=== PATIENT | male | born 1995 | race Caucasian/White ===

== ENCOUNTER 2020-05-18 08:12 | Outpatient (REF) | payer OTHER, SELFPAY ==
--- NOTE | 2020-05-18 08:18 | XR_ITS ---
EXAMINATION: XR CHEST CLINICAL INFORMATION: Precordial pain. COMPARISON: None TECHNIQUE: 2 views of the chest were obtained. FINDINGS: No significant abnormality is noted involving the heart, lungs, mediastinum, bony thorax or soft tissues. XR/XR chest 2V IMPRESSION: No acute cardiopulmonary process.
== END 2020-05-18 08:13 | disposition home or self-care (01) ==
LOC: HO.XRAY 08:12
PROVIDERS: Visit Provider Internal Medicine
DX: R07.2 Precordial pain (principal)
CPT/HCPCS: 71046

== ENCOUNTER → 2020-05-29 14:58 | Outpatient (BNVA) | payer OTHER, SELFPAY | PROVIDERS: PCP Internal Medicine; Referring Provider Internal Medicine; Visit Provider Internal Medicine | DX: R07.2 Precordial pain (principal) | CPT/HCPCS: 93005 ==

== ENCOUNTER → 2020-06-11 13:00 | Outpatient (REF) | payer OTHER, SELFPAY ==
--- NOTE | 2020-06-11 13:06 | CA_ITS ---
Transthoracic Echocardiogram Patient (Last, First, Middle): Huang Galvez, Gender: Male Date of : 1995 Age: 24 Procedure Date: 06/11/2020 Procedure Type: Transthoracic Echocardiogram Location: OP Height: 177.8 cm Weight: 74.84 kg BSA: 1.92 m2 Heart Rate: bpm BP: 114 / 78 mmHg Certified Control Systems Technician: NICOLE Manzanares MD: Tramaine Edwards MD Symptoms: CP Study Quality: Good ECG Rhythm: Sinus Conclusions: - The left ventricular systolic function is normal. The visually estimated ejection fraction is between 55-60%. - No obvious valvular pathology seen on this study. Findings Left Ventricle Normal left ventricular cavity size. There is normal left ventricular wall thickness. The left ventricular systolic function is normal. The visually estimated ejection fraction is between 55-60%. There is no evidence of regional wall motion abnormalities. Diastolic function is normal for age. Right Ventricle Normal right ventricular cavity size and systolic function. Atria The left atrium is normal in size. The right atrium is normal in size. Aortic Valve There is a normal trileaflet aortic valve. There is no aortic valve stenosis. There is no aortic valve regurgitation. Mitral Valve The mitral valve appears normal. There is no mitral valve regurgitation. There is no mitral valve stenosis. Pulmonic Valve The pulmonic valve was not well visualized. Tricuspid Valve Normal tricuspid valve structure. There is trace tricuspid valve regurgitation. The pulmonary artery systolic pressure is normal. Great Vessels The asc aorta is normal in size. Venous The inferior vena cava is normal in size and collapses greater than 50% with inspiration. Pericardium/Pleural There is no evidence of pericardial effusion. Prior Study Comparison No prior study available for comparison. Recommendations, Care & Conclusions No obvious valvular pathology seen on this study. Measurements 2D Linear Measurements RVIDd: 3.07 RVIDd Index: 1.60 IVSd: 0.72 0.6-0.9/0.6-1.0 cm LVIDd: 4.73 3.9-5.3/4.2-5.9 cm LVIDd Index: 2.46 2.4-3.2/2.2-3.1 cm/m2 LVIDs: 3.53 2.0-3.6 cm LVPWd: 0.87 0.7-1.1 cm Ao Root: 3.10 2.1-3.5 cm LA Diam: 3.20 2.7-3.8/3.0-4.0 cm LAIDs Index: 1.67 1.5-2.3 cm/m2 LV Mass: 152.85 67-162/88-224 g LV Mass Index: 79.61 43-95/49-115 g/m2 LVOT Diam: 2.30 3.0+(-)1.3 cm 2D Systolic Function EF 4C: 53.70 >55% EF 2C: 59.10 >55% EF BiP: 57.20 >55% Mitral Valve MV Pk E: 0.64 MV PK A: 0.41 MV Decel Time: 234.00 E/A: 1.60 E'Lateral: 16.80 E'Medial: 13.20 E/E' Med: 4.90 E/E' Lat: 3.80 Aortic Valve AoV Pk Basil: 1.18 AoV Mn Basil: 0.79 AoV VTI: 0.20 AoV Pk Grad: 6.00 Aov Mn Grad: 3.00 YOGI Cont.VTI: 4.15 LVOT LVOT Pk Basil: 1.17 LVOT Mn Basil: 0.71 LVOT VTI: 0.20 LVOT Pk Grad: 5.00 LVOT Mn Grad: 2.00 LVOT Diam: 2.30 LVOT Area: 4.15 Diastolic Function MV Pk E: 0.64 MV Pk A: 0.41 E/A: 1.60 E'Medial: 13.20 E/E' Med: 4.90 E' Laterial: 16.80 E/E' Lat: 3.80 Tricuspid Valve TR Pk Basil: 2.01 TR Pk Grad: 16.00 RA Press: 8.00 RVSP: 24.00 Great Vessels Aorta Ao Root-2D: 3.10 2.0-3.7 cm Ao Asc: 2.90 2.1-3.4 cm Ao Arch: 2.50 Updated in Other Vendor System with Status of Final Tramaine Edwards MD electronically signed on 06/11/2020 4:11:40 PM with status of Final
== END ==
LOC: HO.CARD 13:00
PROVIDERS: PCP Internal Medicine; Visit Provider Internal Medicine
DX: R07.2 Precordial pain (principal)
CPT/HCPCS: 93306

== ENCOUNTER → 2020-06-13 13:35 | Outpatient (BNVA) | payer OTHER, SELFPAY | PROVIDERS: PCP Internal Medicine; Visit Provider Internal Medicine | DX: Z76.89 Persons encountering health services in other specified circumstances (principal) ==

== ENCOUNTER → 2021-01-03 14:06 | Outpatient (BNVA) | payer OTHER, SELFPAY | PROVIDERS: PCP Internal Medicine; Referring Provider Internal Medicine; Visit Provider Surgery ==

== ENCOUNTER 2021-01-23 06:16 | Day surgery (SDC) | payer OTHER, SELFPAY ==
[2021-01-16 09:39] VITALS: BMI 26.4
--- NOTE | 2021-01-22 08:10 | HO.ANESPROP2 ---
Documented by User: Brenda Maza 01/22/21 08:11 HPI - Anesthesia Eval Consult details Narrative: 25yo M for Excision of Pilonidal Cyst, Excision of Sebaceous Cyst Left Chest Wall PMFSH Active Problems Active Problems: All Active Problems (Updated 01/16/21 @ 09:41 by Caridad Perez) Precordial chest pain (Acute) Sebaceous cyst (Acute) Pilonidal cyst (Acute) Past Medical History Medical History Asthma COVID-19 vaccine administered GERD (gastroesophageal reflux disease) Occasional cigarette smoker Family History Family History Father Heart attack Mother No problems noted. Surgical History Surgical History Hx of wisdom tooth extraction Social History Social History Are you a primary health and social care teacher to a significant other at home: No Do you presently have visiting nurse or other home services: No Alcohol intake: current Alcohol intake frequency: a few times a week Patient Tobacco Use Status: Current someday Tobacco user Tobacco use type: Cigarette Cigarettes Per Day: 0 Use of substances other than those prescribed or required for medical reasons: No Substance Use Type: Marijuana Have you been hit, kicked, punched, or otherwise hurt by someone within the past year? If so, by whom?: No Are you DNR?: No Advance Directives: No Advance Directives Information Provided: Yes Advance Directives on File: No Recently lost weight without trying: No Eating poorly because of decreased appetite: No Nutrition Risks: No Nutritional Risk Poor oral hygiene: Yes (has permanent lower inner retainer) Meds Allergies Allergy/AdvReac Type Severity Reaction Status Date / Time Penicillins Allergy Severe anaphylaxis Verified 01/23/21 06:22 in mother - Pt did not react Home Medications Medication Instructions Recorded Confirmed Last Taken Type albuterol sulfate 90 mcg/actuation 1 inh INHALATION Q4H PRN 05/29/20 01/16/21 Unknown History aerosol inhaler omeprazole 20 mg capsule,delayed 20 mg PO DAILY PRN 06/13/20 01/16/21 Unknown History release Exam Exam Date and Time: January 22, 2021 0810 Height,Weight and Vital Signs: Height 5 ft 10 in Weight 83.5 kg Narrative Narrative: EKG 05/2020 sinus tachycardia / 101/Min, no significant ST-T changes and otherwise unremarkable; normal MD /QTc. ECHO 05/2020 Conclusions: - The left ventricular systolic function is normal. The visually estimated ejection fraction is between 55-60%. - No obvious valvular pathology seen on this study. Assessment and Plan Assessment Anesthesia Assessment: Chart Reviewed Documented by User: Maureen Kilgore 01/23/21 07:42 [facility] Past Medical History Medical History Asthma COVID-19 vaccine administered GERD (gastroesophageal reflux disease) Occasional cigarette smoker Family History Family History Father Heart attack Mother No problems noted. Surgical History Surgical History Hx of wisdom tooth extraction Social History Social History Are you a primary health and social care teacher to a significant other at home: No Do you presently have visiting nurse or other home services: No Alcohol intake: current Alcohol intake frequency: a few times a week Patient Tobacco Use Status: Current someday Tobacco user Tobacco use type: Cigarette Cigarettes Per Day: 0 Use of substances other than those prescribed or required for medical reasons: No Substance Use Type: Marijuana Have you been hit, kicked, punched, or otherwise hurt by someone within the past year? If so, by whom?: No Are you DNR?: No Advance Directives: No Advance Directives Information Provided: Yes Advance Directives on File: No Recently lost weight without trying: No Eating poorly because of decreased appetite: No Nutrition Risks: No Nutritional Risk Poor oral hygiene: Yes (has permanent lower inner retainer) Meds Allergies Allergy/AdvReac Type Severity Reaction Status Date / Time Penicillins Allergy Severe anaphylaxis Verified 01/23/21 06:22 in mother - Pt did not react Home Medications Medication Instructions Recorded Confirmed Last Taken Type albuterol sulfate 90 mcg/actuation 1 inh INHALATION Q4H PRN 05/29/20 01/16/21 Unknown History aerosol inhaler omeprazole 20 mg capsule,delayed 20 mg PO DAILY PRN 06/13/20 01/16/21 Unknown History release Exam Airway Mallampati Class: I TM Dist: >3cm Neck ROM: Full Assessment and Plan Assessment Anesthesia Assessment: Anesthesia Plan Discussed and Chart Reviewed Final Anesthetic Review NPO: Yes ASA Class: I Final Preanesthetic Review: No Changes in Pt Med Stat, Meds/Allgs Chart Reviewed, Consent Obtained/Reviewed and Anes Risks/Benef Reviewed Patient Risk: Low Procedure Risk: Low Assessment/Block/Sedation in SS: Assess/Block/Sedation-SS Anesthetic Plan Anesthetic Plan: GA Disposition: Standard PACU
[2021-01-23 06:27] VITALS: BP 138/82; PULSE 69; RESP 16; TEMP 36.1; O2SAT 99; BMI 25.1
[2021-01-23] MEDS: Lactated Ringers 1,000 ML 100 ML IVCONT (06:37)
[2021-01-23] MEDS: vancomycin HCL 1,000 MG in 0.9 % Sodium Chloride 250 ML 270 MG IV (06:51)
--- NOTE | 2021-01-23 07:24 | MHC.SHP ---
Pre-Procedural Eval Section A Date of Service: 01/23/21 The patient is an INPATIENT: No Changes since office visit: Yes Patient answered all questions; No Cold of Flu in the past 2 weeks, No New Medical Problems and No Changes in Medication The History & Physical has been completed within 30 days and I have reviewed it.: Yes Section B Chief Complaint: Sebaceous Cyst, Pilonidal Cyst Allergies: Allergies Allergy/AdvReac Type Severity Reaction Status Date / Time Penicillins Allergy Severe anaphylaxis Verified 01/23/21 06:22 in mother - Pt did not react Plan Diagnosis/Plan: Unchanged I have reviewed the history and physical and performed a pertinent physical examination on my patient. No changes have occurred unless specified.
[2021-01-23 08:29] VITALS: BP 118/68; PULSE 67; RESP 16; TEMP 36.4; O2SAT 98
--- NOTE | 2021-01-23 08:29 | P.OP_ITS ---
Operative Note Operative Note Date of Service: 01/23/21 Narrative: Preoperative diagnosis:Pilonidal cyst, chest wall sebaceous cyst Postoperative diagnosis:same Procedure:Pilonidal cystectomy, excision of chest wall sebaceous cyst Surgeon: Gorge Paul MD Crew Mess Attendant: no physician Anesthesia:General LMA Indications for procedure: 25-year-old male patient presenting with a constantly draining pilonidal cyst. Patient requested excision. Patient also has recurring infected sebaceous cyst of the anterior chest wall to the left of midline. Operative findings: Pilonidal cyst located in the upper right intergluteal fold. No abscess appreciated. Sebaceous cyst with surrounding inflammatory changes in the anterior left chest Specimen: 1. pilonidal cyst; 2. sebaceous cyst left chest wall Estimated blood loss: 10 mL Complications: none Procedure details: patient was brought to the OR and placed in a supine position. He was then placed in a prone position. After administering general anesthesia with LMA the intergluteal cleft was prepped with Betadine and draped in a sterile fashion. A surgical time-out was called the consent confirmed. Patient received preoperative antibiotics and Venodyne boots were in place. Local anesthesia consisting of 0.5% Sensorcaine was infiltrated surrounding the pilonidal cyst. An elliptical incision was then created with a scalpel and carried out through subcutaneous tissue and around the cyst wall. The cyst was completely excised and sent to pathology for further examination. After achieving adequate hemostasis the subcutaneous tissue was reapproximated using interrupted 3-0 Polysorb sutures. Dermis was also reapproximated using interrupted 3-0 Polysorb sutures. Skin was then closed using interrupted 3-0 nylon sutures. Sterile dressings consisting of Xeroform and ABD pads were then applied. The patient was then placed in a supine position. Skin wound over the left chest cyst wall was prepped Betadine and draped in a sterile fashion. Local was infiltrated surrounding the lesion. An elliptical incision using 15 blade was then used in a transverse fashion. This carried out through subcutaneous tissue around the cyst wall. Dermis was reapproximated using interrupted 3-0 Polysorb sutures. Skin was closed using interrupted 4-0 nylon sutures. Sterile dressings consisting of 2 x 2 gauze and Tegaderm were then applied. The patient tolerated the procedure well. Sponge, instrument, needle counts reported as correct. The patient was transferred to PACU in stable condition.
[2021-01-23 08:34] VITALS: BP 106/71; PULSE 65; RESP 16; O2SAT 99
[2021-01-23 08:38] VITALS: BP 117/69; PULSE 65; RESP 16; O2SAT 99
[2021-01-23 08:45] VITALS: PULSE 72; RESP 16
[2021-01-23] MEDS: oxyCODONE HCl Immed Release 5 MG TABLET PO (08:57)
[2021-01-23] MEDS: Acetaminophen 325 MG TABLET 650 MG PO (08:57)
[2021-01-23 09:00] VITALS: BP 139/91; PULSE 75; RESP 18; TEMP 36.4; O2SAT 100
== END 2021-01-23 09:50 | disposition home or self-care (01) ==
PROVIDERS: PCP Internal Medicine; Visit Provider Surgery
PROC: (CPT 11771; principal; 2021-01-23 07:30)
DX: L05.91 Pilonidal cyst without abscess (principal); L72.3 Sebaceous cyst; J45.909 Unspecified asthma, uncomplicated; K21.9 Gastro-esophageal reflux disease without esophagitis; Z79.899 Other long term (current) drug therapy; Z88.0 Allergy status to penicillin; F17.210 Nicotine dependence, cigarettes, uncomplicated; F12.90 Cannabis use, unspecified, uncomplicated
CPT/HCPCS: 11771; 11406; 88304; J1100; J2250; J2405; J3010; J3370

== ENCOUNTER → 2021-02-05 11:03 | Outpatient (BNVA) | payer OTHER, SELFPAY | PROVIDERS: PCP Internal Medicine; Referring Provider Internal Medicine; Visit Provider Surgery ==

== ENCOUNTER → 2021-02-22 09:51 | Outpatient (BNVA) | payer OTHER, SELFPAY | PROVIDERS: PCP Internal Medicine; Referring Provider Internal Medicine; Visit Provider Surgery ==

== ENCOUNTER 2021-04-01 11:36 | Outpatient (REF) | payer OTHER, SELFPAY ==
[2021-04-01 11:39] LABS: MANUAL DIFF FLAG NO
[2021-04-01 12:09] LABS: Appearance Urine CLEAR; Color Urine YELLOW; Glucose Urine UA NEG (NEG); Leukocyte Esterase Urine NEG (NEG); Nitrite Urine NEG (NEG); Specific Gravity - Urine 1.025 (1.005-1.025); Urine Blood NEG (NEG); Urine Ketones NEG (NEG); Urine Protein NEG (NEG-TRACE)
[2021-04-01 12:11] LABS: Basophils Absolute Auto 0.1 X10*3/uL (0.0-0.2); Basophils Percent Auto 0.5 % (0-2); Eosinophils Absolute Auto 0.4 X10*3/uL (0.0-0.4); Eosinophils Percent Auto 4.4 % (0-4); Hematocrit 45.9 % (42-52); Hemoglobin 15.6 g/dl (14.0-18.0); Imm Gran Abs Auto 0.03 X10*3/uL (0.00-0.03); Imm Gran Pct Auto 0.3 % (0.0-0.4); Lymphocytes Percent Auto 31.3 % (20-40); Mean Corpuscular Hemoglobin 31.5 pg (27.0-33.0); Mean Corpuscular Volume 92.7 fL (80-98); Monocytes Absolute Auto 0.7 X10*3/uL (0.1-1.2); Monocytes Percent Auto 7.2 % (2-11); Neutrophils Absolute Auto 5.4 X10*3/uL (2.0-8.3); Neutrophils Percent Auto 56.3 % (45-73); Platelet Count 308 X10*3/uL (160-400); Red Blood Count 4.95 X10*6/uL (4.60-5.80); Red Cell Distribution Width 12.3 % (11.0-16.0); White Blood Count 9.6 X10*3/uL (4.8-10.8)
[2021-04-01 12:45] LABS: Alanine Aminotransferase 37 U/L (0-40); Albumin Level 4.6 g/dL (3.5-5.0); Alkaline Phosphatase 73 U/L (39-117); Anion Gap 13 (12-20); Aspartate Amino Transferase 17 U/L (5-37); Bilirubin Total 0.5 mg/dL (0.0-1.0); Blood Urea Nitrogen 10 mg/dL (9-16); Calcium 9.8 mg/dL (8.4-10.2); Carbon Dioxide 25 mmol/L (22-29); Chloride 105 mmol/L (96-108); Cholesterol 159 mg/dL; Estimated Glomerular Filt Rate > 60; Glucose Fasting 88 mg/dL (60-99); HDL Cholesterol 49 mg/dL; LDL Cholesterol Calculated 92 mg/dl; Potassium 4.1 mmol/L (3.3-5.1); Sodium 139 mmol/L (135-145); Total Protein 7.2 g/dL (6.5-8.0); Triglycerides 94 mg/dL
== END 2021-04-01 11:37 | disposition home or self-care (01) ==
LOC: HO.LNP 11:36
PROVIDERS: Visit Provider Internal Medicine
DX: Z00.00 Encounter for general adult medical examination without abnormal findings (principal); D72.820 Lymphocytosis (symptomatic)
CPT/HCPCS: 80053; 80061; 81003; 85025

== ENCOUNTER → 2021-08-20 15:29 | Outpatient (BNVA) | payer OTHER, SELFPAY | PROVIDERS: PCP Internal Medicine; Referring Provider Internal Medicine; Visit Provider Surgery ==

== ENCOUNTER → 2021-09-03 15:02 | Outpatient (BNVA) | payer OTHER, SELFPAY | PROVIDERS: PCP Internal Medicine; Referring Provider Internal Medicine; Visit Provider Surgery ==

== ENCOUNTER → 2021-09-17 15:01 | Outpatient (BNVA) | payer OTHER, SELFPAY | PROVIDERS: PCP Internal Medicine; Visit Provider Surgery ==

== ENCOUNTER → 2021-10-15 15:04 | Outpatient (BNVA) | payer OTHER, SELFPAY | PROVIDERS: PCP Internal Medicine; Referring Provider Internal Medicine; Visit Provider Surgery | DX: L05.91 Pilonidal cyst without abscess (principal) ==

== ENCOUNTER → 2022-03-07 13:13 | Outpatient (BNVA) | payer OTHER, SELFPAY | PROVIDERS: PCP Internal Medicine; Visit Provider Surgery | DX: K60.2 Anal fissure, unspecified (principal); K62.5 Hemorrhage of anus and rectum | CPT/HCPCS: 46600 ==

== ENCOUNTER 2022-04-15 11:39 | Outpatient (REF) | payer OTHER, SELFPAY ==
[2022-04-15 11:41] LABS: MANUAL DIFF FLAG NO
[2022-04-15 12:10] LABS: Basophils Percent Auto 0.6 % (0-2); Eosinophils Absolute Auto 0.5 X10*3/uL (0.0-0.4); Eosinophils Percent Auto 7.2 % (0-4); Hematocrit 46.3 % (42.0-52.0); Hemoglobin 14.9 g/dl (14.0-18.0); Imm Gran Abs Auto 0.01 X10*3/uL (0.00-0.03); Imm Gran Pct Auto 0.1 % (0.0-0.4); Lymphocytes Absolute Auto 2.5 X10*3/uL (1.2-4.9); Lymphocytes Percent Auto 35.3 % (20-40); Mean Corpuscular HGB Conc 32.2 g/dl (31.0-36.0); Mean Corpuscular Hemoglobin 31.1 pg (27.0-33.0); Mean Corpuscular Volume 96.7 fL (80.0-98.0); Mean Platelet Volume 10.1 fL (9.4-12.4); Monocytes Absolute Auto 0.7 X10*3/uL (0.1-1.2); Monocytes Percent Auto 9.3 % (2-11); Neutrophils Absolute Auto 3.4 x10*3/uL (2.0-8.3); Neutrophils Percent Auto 47.5 % (45-73); Platelet Count 286 X10*3/uL (160-400); Red Blood Count 4.79 X10*6/uL (4.60-5.80); Red Cell Distribution Width 13.1 % (11.0-16.0); White Blood Count 7.1 X10*3/uL (4.8-10.8)
[2022-04-15 12:15] LABS: Appearance Urine Clear; Color Urine Yellow; Glucose Urine UA Negative (Negative); Leukocyte Esterase Urine Negative (Negative); Nitrite Urine Negative (Negative); Specific Gravity - Urine >= 1.030 (1.005-1.025); Urine Blood Negative (Negative); Urine Ketones Trace mg/dL (Negative); Urine Protein Negative (Neg-Trace)
[2022-04-15 12:32] LABS: Alanine Aminotransferase 36 U/L (0-40); Albumin Level 4.1 g/dL (3.5-5.0); Alkaline Phosphatase 89 U/L (39-117); Anion Gap 16 (12-20); Aspartate Amino Transferase 14 U/L (5-37); Bilirubin Total < 0.2 mg/dL (0.0-1.0); Blood Urea Nitrogen 20 mg/dL (9-16); Calcium 9.2 mg/dL (8.4-10.2); Carbon Dioxide 27 mmol/L (22-29); Chloride 107 mmol/L (96-108); Cholesterol 148 mg/dL; Estimated Glomerular Filt Rate > 60; Glucose Fasting 78 mg/dL (60-99); HDL Cholesterol 36 mg/dL; LDL Cholesterol Calculated 57 mg/dl; Potassium 4.4 mmol/L (3.3-5.1); Sodium 146 mmol/L (135-145); Triglycerides 277 mg/dL
== END 2022-04-15 11:40 | disposition home or self-care (01) ==
LOC: HO.LNP 11:39
PROVIDERS: Visit Provider Internal Medicine
DX: Z00.00 Encounter for general adult medical examination without abnormal findings (principal); D72.820 Lymphocytosis (symptomatic)
CPT/HCPCS: 80053; 80061; 81003; 85025

== ENCOUNTER → 2022-05-14 09:28 | Outpatient (REF) | payer OTHER, SELFPAY ==
--- NOTE | 2022-05-14 09:33 | CA_ITS ---
Transthoracic Echocardiogram Patient (Last, First, Middle): Huang Galvez, Gender: Male Date of : 1995 Age: 26 Procedure Date: 05/14/2022 Procedure Type: Transthoracic Echocardiogram Location: OP Height: 177.8 cm Weight: 79.38 kg BSA: 1.97 m2 Heart Rate: bpm BP: 124 / 70 mmHg Cosmetic Surgeon: MAGDA Referring MD: Naveed Mueller MD Lemon Picker: Suleman Robison MD Symptoms: HEART MURMUR Study Quality: Adequate ECG Rhythm: Sinus Conclusions: - Normal study Findings Left Ventricle Normal left ventricular size, thickness, and systolic function. The visually estimated ejection fraction is between 60-65%. Diastolic function is normal for age. Right Ventricle Normal right ventricular cavity size and systolic function. Atria Both atria are normal in size. There is no evidence of interatrial shunt. Aortic Valve Normal aortic valve structure and function. There is no aortic valve stenosis. There is no aortic valve regurgitation. Mitral Valve Normal mitral valve structure and function. There is trace mitral valve regurgitation. There is no mitral valve stenosis. Pulmonic Valve The pulmonic valve is likely normal. There is no pulmonic valve regurgitation. Tricuspid Valve Normal tricuspid valve structure. There is trace tricuspid valve regurgitation. The right ventricular systolic pressure is normal. The right ventricular systolic pressure is 19 mmHg. Normal right atrial pressure. There is no evidence of pulmonary hypertension. Great Vessels All visible segments of the aorta are normal in size. The pulmonary artery was not well visualized. Venous The inferior vena cava is normal in size and collapses greater than 50% with inspiration. Pericardium/Pleural There is no evidence of pericardial effusion. Measurements 2D Linear Measurements IVSd: 1.05 0.6-0.9/0.6-1.0 cm LVIDd: 4.42 3.9-5.3/4.2-5.9 cm LVIDd Index: 2.24 2.4-3.2/2.2-3.1 cm/m2 LVIDs: 2.82 2.0-3.6 cm LVPWd: 1.05 0.7-1.1 cm Ao Root: 3.40 2.1-3.5 cm LA Diam: 2.90 2.7-3.8/3.0-4.0 cm LAIDs Index: 1.47 1.5-2.3 cm/m2 LV Mass: 198.45 67-162/88-224 g LV Mass Index: 100.74 43-95/49-115 g/m2 LVOT Diam: 2.40 3.0+(-)1.3 cm Mitral Valve MV Pk E: 0.65 MV PK A: 0.54 MV Decel Time: 213.00 E/A: 1.20 E'Lateral: 14.30 E'Medial: 12.60 E/E' Med: 5.20 E/E' Lat: 4.60 PHT: 62.00 MVA PHT: 3.55 Decel [place]: 3.06 Aortic Valve AoV Pk Basil: 1.06 AoV Mn Basil: 0.68 AoV VTI: 0.25 AoV Pk Grad: 4.00 Aov Mn Grad: 2.00 YOGI Cont.VTI: 3.04 LVOT LVOT Pk Basil: 0.82 LVOT Mn Basil: 0.53 LVOT VTI: 0.17 LVOT Pk Grad: 3.00 LVOT Mn Grad: 1.00 LVOT Diam: 2.40 LVOT Area: 4.52 Diastolic Function MV Pk E: 0.65 MV Pk A: 0.54 E/A: 1.20 E'Medial: 12.60 E/E' Med: 5.20 E' Laterial: 14.30 E/E' Lat: 4.60 Right Ventricle TAPSE (mm): 23.00 TVS' Basil: 10.00 Tricuspid Valve TR Pk Basil: 2.00 TR Pk Grad: 16.00 RA Press: 3.00 RVSP: 19.00 Great Vessels Aorta Ao Root-2D: 3.40 2.0-3.7 cm Ao Asc: 2.70 2.1-3.4 cm Pulmonary Valve PV Pk Basil: 0.84 Peak PV Grad: 3.00 Updated in Other Vendor System with Status of Final Suleman Robison MD electronically signed on 05/15/2022 8:28:58 AM with status of Final
== END ==
LOC: HO.CARD 09:28
PROVIDERS: PCP Internal Medicine; Visit Provider Internal Medicine
DX: R01.1 Cardiac murmur, unspecified (principal)
CPT/HCPCS: 93306

== ENCOUNTER → 2022-10-29 14:08 | Outpatient (BNVA) | payer OTHER, SELFPAY | PROVIDERS: PCP Internal Medicine; Visit Provider Surgery | DX: Z13.89 Encounter for screening for other disorder (principal) ==

== ENCOUNTER 2022-11-12 08:20 | Day surgery (SDC) | payer OTHER, SELFPAY ==
[2022-11-10 12:00] VITALS: BMI 27.8
--- NOTE | 2022-11-11 08:56 | P.CONAN_ITS ---
HPI - Anesthesia Eval Consult details Narrative: 27yo M for Wide Excision Pilonidal Cyst Abscess s/p pilonidal excision 2020 with GA-LMA 5 PMFSH Active Problems Active Problems: All Active Problems (Updated 03/07/22 @ 13:40 by Gorge Paul MD) Precordial chest pain (Acute) Sebaceous cyst (Acute) Pilonidal cyst (Acute) Anal fissure (Acute) Rectal bleeding (Acute) Past Medical History Medical History Asthma COVID-19 vaccine administered GERD (gastroesophageal reflux disease) Occasional cigarette smoker Family History Family History Father Heart attack Mother No problems noted. Surgical History Surgical History Hx of wisdom tooth extraction Pilonidal cyst Social History Social History Are you a primary date night caregiver to a significant other at home: No Do you presently have visiting nurse or other home services: No Alcohol intake: current Alcohol intake frequency: a few times a week Patient Tobacco Use Status: Current someday Tobacco user Tobacco use type: Cigarette Cigarettes Per Day: 0 Substance Use Type: Marijuana Meds Allergies Allergy/AdvReac Type Severity Reaction Status Date / Time Penicillins Allergy Severe anaphylaxis Verified 11/12/22 08:56 in mother - Pt did not react Home Medications Medication Instructions Recorded Confirmed Last Taken Type albuterol sulfate 90 mcg/actuation 1 inh inhalation Q4H PRN Wheezing 05/29/20 11/10/22 Unknown History aerosol inhaler Exam Exam Date and Time: November 11, 2022 0856 Height,Weight and Vital Signs: Height 5 ft 10 in Weight 87.906 kg Narrative Narrative: ECHO 04/2022 Conclusions: - Normal study ? Assessment and Plan Assessment Anesthesia Assessment: Chart Reviewed
[2022-11-12] VITALS (11 sets, daily range): BP systolic 135–165; BP diastolic 86–118; PULSE 81–121; RESP 15–18; TEMP 36.2–36.6; O2SAT 95–98
[2022-11-12] MEDS: Lactated Ringers 1,000 ML 100 ML IVCONT (09:27)
--- NOTE | 2022-11-12 09:35 | P.CONAN_ITS ---
[facility] Active Problems Active Problems: All Active Problems (Updated 03/07/22 @ 13:40 by Gorge Paul MD) Precordial chest pain (Acute) Sebaceous cyst (Acute) Pilonidal cyst (Acute) Anal fissure (Acute) Rectal bleeding (Acute) Past Medical History Medical History Asthma COVID-19 vaccine administered GERD (gastroesophageal reflux disease) Occasional cigarette smoker Family History Family History Father Heart attack Mother No problems noted. Surgical History Surgical History Hx of wisdom tooth extraction Pilonidal cyst Social History Social History Are you a primary customer care consultant to a significant other at home: No Do you presently have visiting nurse or other home services: No Alcohol intake: current Alcohol intake frequency: a few times a week Patient Tobacco Use Status: Current someday Tobacco user Tobacco use type: Cigarette Cigarettes Per Day: 0 Use of substances other than those prescribed or required for medical reasons: Yes Substance Use Type: Marijuana Substance Use Frequency: Occasionally Are you DNR?: No Advance Directives: No Advance Directives Information Provided: Yes Meds Allergies Allergy/AdvReac Type Severity Reaction Status Date / Time Penicillins Allergy Severe anaphylaxis Verified 11/12/22 08:56 in mother - Pt did not react Active Medications: Current Medications Albuterol Sulfate (Albuterol Sulfate (0.083%) 2.5 Mg/3 Ml Vial.Neb) 2.5 mg INHALE ONCE PRN PRN Reason: Shortness of Breath/Wheezing Lactated Ringer's (Lr) 1,000 mls @ 100 mls/hr IVCONT .Q10H KENDELL Last Admin: 11/12/22 09:27 Dose: 100 mls/hr Home Medications Medication Instructions Recorded Confirmed Last Taken Type albuterol sulfate 90 mcg/actuation 1 inh inhalation Q4H PRN Wheezing 05/29/20 11/10/22 Unknown History aerosol inhaler Exam Exam Date and Time: November 12, 2022 0935 Height,Weight and Vital Signs: Height 5 ft 10 in Weight 87.906 kg Last Vital Signs Temp 97.2 F 11/12/22 09:28 Pulse 81 04/26/23 09:28 Resp 15 11/12/22 09:28 BP 135/86 11/12/22 09:28 Pulse Ox 98 11/12/22 09:28 O2 Del Method Room Air 11/12/22 09:28 Airway Mallampati Class: II TM Dist: >3cm Neck ROM: Full Heart: RRR Lungs: CTA Assessment and Plan Final Anesthetic Review ASA Class: II Final Preanesthetic Review: Meds/Allgs Chart Reviewed, Consent Obtained/Reviewed and Anes Risks/Benef Reviewed Patient Risk: Low Procedure Risk: Low Anesthetic Plan Anesthetic Plan: GA Disposition: Standard PACU
--- NOTE | 2022-11-12 10:49 | P.OP_ITS ---
Operative Note Operative Note Date of Service: 11/12/22 Narrative: Preoperative diagnosis: Recurrent pilonidal cyst abscess Postoperative diagnosis: same Procedure: pilonidal cystectomy Surgeon: Gorge Paul MD Steel Erector: Kristen Vazquez PA-C Anesthesia: general endotracheal Indications for procedure: 27-year-old male patient with a previous history of pilonidal cyst excision now presenting with persistent drainage and bleeding, presenting for wider excision Operative findings: large subcutaneous collection in the upper intergluteal fold measuring approximately 3 cm in diameter Specimen: pilonidal cyst abscess Estimated blood loss: 5 mL Complications: none Procedure details: patient was brought to the OR placed in a supine position. After administering general anesthesia and was placed in a prone position. The patient's intergluteal cleft was prepped with Betadine and draped in a sterile fashion. A surgical time-out was called the consent confirmed. Patient received preoperative antibiotics and Venodyne boots were in place. Local anesthesia was then infiltrated around the excision site. methylene blue was injected into the abscess cavity. Elliptical incision was then created around the palpable cyst collection. Incision measured approximately 4 by 3 cm. Incision was carried out through subcutaneous tissue. Electrocautery was then used to dissect around the blue-stained abscess cavity. The lesion was then excised off the posterior muscle fascia. Hemostasis was assured using electrocautery at all times. The specimen was passed off table and sent to pathology for further examination. Wounds were then irrigated with saline solution and suctioned dry. Deep subcutaneous tissue was then reapproximated using interrupted 3-0 Polysorb sutures. Dermis and superficial fatty tissue was then reapproximated using interrupted 3-0 Polysorb sutures. Skin was then closed using interrupted 2 0 nylon sutures in a mattress formation. Sterile dressings were then applied. The patient tolerated the procedure well. Sponge, instrument, and needle counts reported as correct. The patient was transferred to PACU in stable condition.
--- NOTE | 2022-11-12 11:55 | HO.POSTANES ---
Post Anesthesia Evaluation Post Anesthesia Evaluation Vital Signs: Vital Signs Temp Pulse Resp BP Pulse Ox O2 Del Method 11/12/22 09:28 97.2 F 81 15 135/86 98 Room Air Anesthesia: General Endotracheal-GETA Mental Status: Awake Pain Control: Satisfactory Nausea/Vomiting: None Hydration: Adequate Anesthesia-Related Issues: No Anes. Related Issues
[2022-11-12] MEDS: oxyCODONE HCl Immed Release 5 MG TABLET PO (12:32)
[2022-11-12] MEDS: fentaNYL citrate/PF 100 MCG/2 ML VIAL 25 MCG IVPUSH ×3 (12:33→12:58)
== END 2022-11-12 14:22 | disposition home or self-care (01) ==
PROVIDERS: PCP Internal Medicine; Visit Provider Surgery
PROC: (CPT 11771; principal; 2022-11-12 10:20)
DX: L05.91 Pilonidal cyst without abscess (principal); J45.909 Unspecified asthma, uncomplicated; K21.9 Gastro-esophageal reflux disease without esophagitis; Z79.899 Other long term (current) drug therapy; Z88.0 Allergy status to penicillin; F17.210 Nicotine dependence, cigarettes, uncomplicated
CPT/HCPCS: 11771; 88304; J0690; J1100; J1885; J2250; J2405; J3010; Q9968

== ENCOUNTER → 2022-11-25 11:30 | Outpatient (BNVA) | payer OTHER, SELFPAY | PROVIDERS: PCP Internal Medicine; Visit Provider Physician Assistant Surgical ==

== ENCOUNTER → 2022-12-11 13:51 | Outpatient (BNVA) | payer OTHER, SELFPAY | PROVIDERS: PCP Internal Medicine; Visit Provider Surgery ==

== ENCOUNTER 2023-05-26 07:16 | Outpatient (REF) | payer OTHER, SELFPAY ==
[2023-05-26 07:25] LABS: MANUAL DIFF FLAG NO
[2023-05-26 07:48] LABS: Basophils Absolute Auto 0.1 X10*3/uL (0.0-0.2); Basophils Percent Auto 0.4 % (0-2); Eosinophils Absolute Auto 0.7 X10*3/uL (0.0-0.4); Eosinophils Percent Auto 5.2 % (0-4); Hematocrit 46.5 % (42.0-52.0); Hemoglobin 15.5 g/dl (14.0-18.0); Imm Gran Abs Auto 0.04 X10*3/uL (0.00-0.03); Imm Gran Pct Auto 0.3 % (0.0-0.4); Lymphocytes Absolute Auto 2.5 X10*3/uL (1.2-4.9); Lymphocytes Percent Auto 20.1 % (20-40); Mean Corpuscular HGB Conc 33.3 g/dl (31.0-36.0); Mean Corpuscular Hemoglobin 31.1 pg (27.0-33.0); Mean Corpuscular Volume 93.2 fL (80.0-98.0); Mean Platelet Volume 9.5 fL (9.4-12.4); Monocytes Absolute Auto 0.9 X10*3/uL (0.1-1.2); Monocytes Percent Auto 7.5 % (2-11); Neutrophils Absolute Auto 8.3 x10*3/uL (2.0-8.3); Neutrophils Percent Auto 66.5 % (45-73); Platelet Count 325 X10*3/uL (160-400); Red Blood Count 4.99 X10*6/uL (4.60-5.80); Red Cell Distribution Width 12.5 % (11.0-16.0); White Blood Count 12.5 X10*3/uL (4.8-10.8)
[2023-05-26 08:04] LABS: Appearance Urine Clear; Color Urine Yellow; Glucose Urine UA Negative (Negative); Leukocyte Esterase Urine Negative (Negative); Nitrite Urine Negative (Negative); Urine Blood Negative (Negative); Urine Ketones Negative (Negative); Urine Protein Negative (Neg-Trace)
[2023-05-26 08:10] LABS: Bacteria Urine None Seen (None Seen); Hyaline Casts Urine 0-2 /LPF (0-2); RBC Urine 0-2 /HPF (0-2); Squamous Epithelial Cell Urine 0-2 /HPF (0-2); WBC Urine 0-5 /HPF (0-5)
[2023-05-26 08:17] LABS: Alanine Aminotransferase 42 U/L (0-40); Albumin Level 4.2 g/dL (3.5-5.0); Alkaline Phosphatase 97 U/L (39-117); Anion Gap 12 (12-20); Aspartate Amino Transferase 45 U/L (5-37); Bilirubin Total 0.2 mg/dL (0.0-1.0); Blood Urea Nitrogen 10 mg/dL (9-16); Calcium 9.2 mg/dL (8.4-10.2); Carbon Dioxide 30 mmol/L (22-29); Chloride 107 mmol/L (96-108); Cholesterol 170 mg/dL (<200); Estimated Glomerular Filt Rate > 60; Glucose Fasting 94 mg/dL (60-99); HDL Cholesterol 37 mg/dL (>40); LDL Cholesterol Calculated 84 mg/dL (<100); Potassium 4.1 mmol/L (3.3-5.1); Sodium 145 mmol/L (135-145); Total Protein 7.4 g/dL (6.5-8.0); Triglycerides 245 mg/dL (<150)
== END 2023-05-26 07:17 | disposition home or self-care (01) ==
LOC: HO.LAB 07:16
PROVIDERS: PCP Internal Medicine; Visit Provider Internal Medicine
DX: Z00.00 Encounter for general adult medical examination without abnormal findings (principal); D72.820 Lymphocytosis (symptomatic)
CPT/HCPCS: 36415; 80053; 80061; 81001; 85025

== ENCOUNTER 2023-06-01 15:32 | Outpatient (REF) | payer OTHER, SELFPAY ==
[2023-06-01 15:37] LABS: MANUAL DIFF FLAG NO
[2023-06-01 15:45] LABS: Basophils Percent Auto 0.6 % (0-2); Eosinophils Absolute Auto 0.6 X10*3/uL (0.0-0.4); Eosinophils Percent Auto 8.9 % (0-4); Hematocrit 46.7 % (42.0-52.0); Hemoglobin 15.6 g/dl (14.0-18.0); Imm Gran Abs Auto 0.01 X10*3/uL (0.00-0.03); Imm Gran Pct Auto 0.2 % (0.0-0.4); Lymphocytes Absolute Auto 2.8 X10*3/uL (1.2-4.9); Lymphocytes Percent Auto 43.9 % (20-40); Mean Corpuscular HGB Conc 33.4 g/dl (31.0-36.0); Mean Corpuscular Hemoglobin 30.9 pg (27.0-33.0); Mean Corpuscular Volume 92.5 fL (80.0-98.0); Mean Platelet Volume 9.6 fL (9.4-12.4); Monocytes Absolute Auto 0.5 X10*3/uL (0.1-1.2); Monocytes Percent Auto 8.3 % (2-11); Neutrophils Absolute Auto 2.4 x10*3/uL (2.0-8.3); Neutrophils Percent Auto 38.1 % (45-73); Platelet Count 335 X10*3/uL (160-400); Red Blood Count 5.05 X10*6/uL (4.60-5.80); Red Cell Distribution Width 12.3 % (11.0-16.0); White Blood Count 6.3 X10*3/uL (4.8-10.8)
[2023-06-01 16:24] LABS: Monotest Negative (Negative)
[2023-06-01 16:34] LABS: Alanine Aminotransferase 35 U/L (0-40); Albumin Level 4.3 g/dL (3.5-5.0); Alkaline Phosphatase 74 U/L (39-117); Aspartate Amino Transferase 18 U/L (5-37); Bilirubin Direct 0.1 mg/dL (0.0-0.5); Bilirubin Total 0.3 mg/dL (0.0-1.0); Total Protein 7.3 g/dL (6.5-8.0)
[2023-06-02 07:20] LABS: HBS Num1 2.41 mIU/mL (0-7.99); HBc Num1 0.05 S/CO (0.00-0.79); HBsAGNum1 0.27 S/CO (0.00-0.99); Hepatitis A Antibody IgM 0.19 Index (0-0.79); Hepatitis B Core Antibody Nonreactive (Nonreactive); Hepatitis B Surface Antigen Negative (Negative); ~HepC Num1 0.03 S/CO (0.00-0.79); ~Hepatitis A Antibody IgM Nonreactive (Nonreactive); ~Hepatitis B Surface Antibody NONREACTIVE (Nonreactive); ~Hepatitis C Antibody Nonreactive (Nonreactive)
== END 2023-06-01 15:33 | disposition home or self-care (01) ==
LOC: HO.LNP 15:32
PROVIDERS: Visit Provider Internal Medicine
DX: D72.828 Other elevated white blood cell count (principal); R79.89 Other specified abnormal findings of blood chemistry
CPT/HCPCS: 80076; 85025; 86308; 86704; 86706; 86709; 86803; 87340

== ENCOUNTER 2023-06-08 09:46 | Outpatient (AMB) | payer OTHER, SELFPAY ==
--- NOTE | 2023-06-08 09:52 | A.OFFVIS_ITS ---
Intake Vital Signs 06/08/23 10:01 Height 5 ft 10 in Weight 206 lb BMI 29.6 BP 140/79 H Blood Pressure Location Rt brachial Position Sitting Pulse 89 Intake Visit Reasons: pilonidal cyst abscess (2nd opinion) Intake Note: Patient here for 2nd opinion on cyst/ abscess on buttock. Present for 2yrs. C/o oozing, tenderness. Had it removed 6m ago but it never completely went away. Was surgically excised twice with Dr. Paul. Correctional Substance Abuse Counselor Required: No Accompanied by: Self / Same As Patient Allergies Penicillins Allergy (Severe, Verified 06/08/23 09:59) anaphylaxis in mother - Pt did not react HPI HPI Comments History of Present Illness Details Patient presents with recurrent recurrent pilonidal cyst symptoms. He has had excision in the past x2. He presents with recurrence of symptoms. This consists of drainage and discharge. Chart was reviewed patient evaluated [facility] Medical History Occasional cigarette smoker COVID-19 vaccine administered GERD (gastroesophageal reflux disease) Asthma Surgical History History of excision of pilonidal cyst (11/12/22) Hx of wisdom tooth extraction Pilonidal cyst Family History Father Heart attack Mother No problems noted. Social History (Updated 06/08/23 @ 10:00 by MIMI Liu) Are you a primary transitions rn care coordinator to a significant other at home: No Do you presently have visiting nurse or other home services: No Alcohol intake: current Alcohol intake frequency: a few times a week Alcohol type: beer Patient Tobacco Use Status: Current someday Tobacco user Tobacco use type: Cigarette Cigarettes Per Day: 10 Substance Use Type: Marijuana Physical Exam Vital Signs: Last Vital Signs Pulse 89 06/08/23 10:01 BP 140/79 H 06/08/23 10:01 BMI result Body Mass Index 29.6 Chest Other: Chest breath sounds bilaterally, HS 1 in 2 GI Other: Abdomen soft, benign Back/Spine/Pelvis Other: Recurrent left midline pilonidal disease. Markedly indurated area. No evidence of any fluctuance or abscess. Assessment & Plan Assessment & Plan (1) Chronic recurrent pilonidal cyst: Code(s): L05.91 - Pilonidal cyst without abscess Plan Discussed the patient therapeutic options somewhat limited. This ranged from continue conservative therapy in dealing with this or to re-excise the area. He has opted for the latter. Risks, benefits, alternatives of excision of recurrent pilonidal cyst reviewed the patient and included but not limited to bleeding, infection, recurrence, numbness, pain, scarring, wound dehiscence, seroma formation and the patient wishes to proceed. All questions were answered. Arrangements will be made for this. Coding Level of Care Code New Pt Level 5 (10976) Diagnoses Chronic recurrent pilonidal cyst L05.91
[2023-06-08 10:01] VITALS: BP 140/79; PULSE 89; BMI 29.6
== END 2023-06-08 10:10 | disposition home or self-care (01) ==
PROVIDERS: PCP Internal Medicine; Referring Provider Internal Medicine; Visit Provider Surgery
DX: L05.91 Pilonidal cyst without abscess (principal)
CPT/HCPCS: 99204

== ENCOUNTER → 2023-06-08 09:46 | Outpatient (BNVA) | payer OTHER, SELFPAY | PROVIDERS: PCP Internal Medicine; Referring Provider Internal Medicine; Visit Provider Surgery ==

== ENCOUNTER 2023-06-25 15:29 | Outpatient (REF) | payer OTHER, SELFPAY ==
[2023-06-25 16:34] LABS: TSH reflex Free T4 1.25 uIU/mL (0.32-4.0)
== END 2023-06-25 15:30 | disposition home or self-care (01) ==
LOC: HO.LNP 15:29
PROVIDERS: Visit Provider Internal Medicine
DX: G47.10 Hypersomnia, unspecified (principal)
CPT/HCPCS: 84443

== ENCOUNTER 2023-08-13 05:57 | Day surgery (SDC) | payer OTHER, SELFPAY ==
[2023-08-11 07:42] VITALS: BMI 29.6
--- NOTE | 2023-08-12 09:00 | HO.ANESPROP2 ---
Documented by User: Brenda Maza NP 08/12/23 09:01 HPI - Anesthesia Eval Consult details Narrative: 27yo M for Wide Local Excision Recurrent Pilonidal Cyst Cleft PMFSH Active Problems Active Problems: All Active Problems (Updated 03/07/22 @ 13:40 by Gorge Paul MD) Chronic recurrent pilonidal cyst (Acute) Precordial chest pain (Acute) Sebaceous cyst (Acute) Pilonidal cyst (Acute) Anal fissure (Acute) Rectal bleeding (Acute) Past Medical History Medical History Occasional cigarette smoker COVID-19 vaccine administered GERD (gastroesophageal reflux disease) Asthma Family History Family History Father Heart attack Mother No problems noted. Surgical History Surgical History History of excision of pilonidal cyst (11/12/22) Hx of wisdom tooth extraction Pilonidal cyst Social History Social History Are you a primary respiratory care technician to a significant other at home: No Do you presently have visiting nurse or other home services: No Alcohol intake: current Alcohol intake frequency: a few times a week Alcohol type: beer Patient Tobacco Use Status: Current everyday Tobacco user Tobacco use type: Cigarette Cigarettes Per Day: 10 Smoked in Last 30 Days: Yes Patient Interested in Nicotine Replacement: No Substance Use Type: Marijuana Substance Use Frequency: Daily Are you DNR?: No Advance Directives: No Advance Directives Information Provided: Yes Nutrition Risks: No Nutritional Risk Meds Allergies Allergy/AdvReac Type Severity Reaction Status Date / Time Penicillins Allergy Severe anaphylaxis Verified 08/13/23 06:25 in mother - Pt did not react Home Medications Medication Instructions Recorded Confirmed Last Taken Type albuterol sulfate 90 mcg/actuation 1 inh inhalation Q4H PRN Wheezing 05/29/20 08/13/23 Unknown History aerosol inhaler Exam Height,Weight and Vital Signs: Height 5 ft 10 in Weight 93.44 kg Pertinent Lab Results Pertinent Lab Results: Laboratory Tests 05/26/23 05/26/23 06/01/23 07:24 07:24 13:30 WBC 6.3 Hgb 15.6 Hct 46.7 Plt Count 335 Sodium 145 Potassium 4.1 Chloride 107 Carbon Dioxide 30 H BUN 10 Creatinine 0.81 Narrative Narrative: ECHO 2021 Conclusions: - Normal study Assessment and Plan Assessment Anesthesia Assessment: Chart Reviewed Documented by User: Loraine Humphreys MD 08/13/23 07:55 PMFSH Past Medical History Medical History Occasional cigarette smoker COVID-19 vaccine administered GERD (gastroesophageal reflux disease) Asthma Family History Family History Father Heart attack Mother No problems noted. Surgical History Surgical History History of excision of pilonidal cyst (11/12/22) Hx of wisdom tooth extraction Pilonidal cyst History of Problems with Anesthesia: No Social History Social History Are you a primary respiratory care technician to a significant other at home: No Do you presently have visiting nurse or other home services: No Alcohol intake: current Alcohol intake frequency: a few times a week Alcohol type: beer Patient Tobacco Use Status: Current everyday Tobacco user Tobacco use type: Cigarette Cigarettes Per Day: 10 Smoked in Last 30 Days: Yes Patient Interested in Nicotine Replacement: No Substance Use Type: Marijuana Substance Use Frequency: Daily Are you DNR?: No Advance Directives: No Advance Directives Information Provided: Yes Nutrition Risks: No Nutritional Risk Meds Allergies Allergy/AdvReac Type Severity Reaction Status Date / Time Penicillins Allergy Severe anaphylaxis Verified 08/13/23 06:25 in mother - Pt did not react Home Medications Medication Instructions Recorded Confirmed Last Taken Type albuterol sulfate 90 mcg/actuation 1 inh inhalation Q4H PRN Wheezing 05/29/20 08/13/23 Unknown History aerosol inhaler Exam Airway Mallampati Class: II TM Dist: >3cm Neck ROM: Full Loose/Missing/Broken Teeth: No Heart: RRR Lungs: CTA Assessment and Plan Assessment Anesthesia Assessment: Anesthesia Plan Discussed Final Anesthetic Review History of Problems with Anesthesia: No NPO: Yes ASA Class: II Final Preanesthetic Review: Meds/Allgs Chart Reviewed, Consent Obtained/Reviewed and Anes Risks/Benef Reviewed Patient Risk: Low Procedure Risk: Low Anesthetic Plan Anesthetic Plan: GA Disposition: Standard PACU
--- NOTE | 2023-08-12 13:31 | MHC.SHP ---
Pre-Procedural Eval Section A Date of Service: 08/12/23 The patient is an INPATIENT: No Changes since office visit: No Cold of Flu in the past 2 weeks, No New Medical Problems, No Changes in Medication and No Patient answered all questions The History & Physical has been completed within 30 days and I have reviewed it.: Yes Section B Chief Complaint: Pilonidal cyst without abscess Allergies: Allergies Allergy/AdvReac Type Severity Reaction Status Date / Time Penicillins Allergy Severe anaphylaxis Verified 06/08/23 09:59 in mother - Pt did not react Plan I have reviewed the history and physical and performed a pertinent physical examination on my patient. No changes have occurred unless specified. Time Spent With Patient Time: Total time managing care of this patient today ____ minutes.
[2023-08-13 06:10] VITALS: BMI 29.1
[2023-08-13] MEDS: Lactated Ringers 1,000 ML 100 ML IVCONT (06:16)
[2023-08-13 06:24] VITALS: BP 147/98; PULSE 97; RESP 18; TEMP 36.9; O2SAT 96
[2023-08-13 08:28] VITALS: BP 143/75; PULSE 99; RESP 18; TEMP 36.2; O2SAT 98
--- NOTE | 2023-08-13 08:29 | P.OP_ITS ---
Operative Note Operative Note Date of Service: 08/13/23 Narrative: Preoperative diagnosis: [] Recurrent pilonidal cyst of cleft Postop diagnosis: [] Same Procedure [] wire local incision recurrent pilonidal cyst of cleft Surgeon: [] Raza Security And Privacy Consultant: [] Taylor Type of Anesthesia: [] General Indication for surgery: [] Marked induration and scarring along with pilonidal sinus tracts of the cleft. Findings: [] Patient brought to the operating room, placed on operative table supine position, after adequate level of general anesthesia was induced, patient was placed in the prone abundio-knife position. Bilateral buttock and cleft and lower back areas were prepped and draped in usual sterile fashion. Using a longitudinal bi-elliptical incision around the diseased remington cleft pilonidal cyst, this carried down through skin, subcutaneous tissue, and undermined using Bovie. Specimen sent to pathology. Wound was irrigated, secured hemostasis, and closed in the following manner; subcutaneous tissue to wound base to contralateral subcutaneous tissue interrupted 0 Vicryl sutures were initially placed. Interrupted inverted dermal 2-0 Vicryl sutures were then placed followed by vertical mattress interrupted 2-0 Prolene sutures. Wound was infiltrated 0.5% Marcaine at the beginning and at completion of the procedure. Sponge, needle, and instrument counts were reported correct. Patient tolerated the procedure well and emerged from anesthesia stable condition. EBL minimal
[2023-08-13 08:33] VITALS: BP 145/82; PULSE 115; RESP 19; O2SAT 100
[2023-08-13 08:38] VITALS: BP 148/95; PULSE 115; RESP 20; O2SAT 99
[2023-08-13 08:44] VITALS: BP 146/95; PULSE 102; RESP 19; O2SAT 97
[2023-08-13] MEDS: oxyCODONE HCl Immed Release 5 MG TABLET PO (08:47)
[2023-08-13 08:59] VITALS: BP 137/99; PULSE 104; RESP 18; TEMP 36.1; O2SAT 97
--- NOTE | 2023-08-13 11:15 | PC.NURSE ---
Late Entry: Prior to discharge patient reported 7/10 pain to coccyx surgical site. Medicated with oxycodone 5mg at 0847 with some relief pain down to 5/10 at discharge. 09
== END 2023-08-13 09:22 | disposition home or self-care (01) ==
PROVIDERS: PCP Internal Medicine; Visit Provider Surgery
PROC: (CPT 11771; principal; 2023-08-13 07:30)
DX: L05.91 Pilonidal cyst without abscess (principal); J45.909 Unspecified asthma, uncomplicated; K21.9 Gastro-esophageal reflux disease without esophagitis; F17.210 Nicotine dependence, cigarettes, uncomplicated; F12.90 Cannabis use, unspecified, uncomplicated; Z79.899 Other long term (current) drug therapy; Z88.0 Allergy status to penicillin; Z88.1 Allergy status to other antibiotic agents
CPT/HCPCS: 11771; 88304; J0131; J0736; J1100; J1885; J2250; J2405; J2704; J2795; J3010

== ENCOUNTER → 2023-08-13 05:57 | Outpatient (BNV) | payer OTHER, SELFPAY | PROVIDERS: PCP Internal Medicine; Visit Provider Surgery | DX: L05.91 Pilonidal cyst without abscess (principal) | CPT/HCPCS: 11770 ==

== ENCOUNTER 2023-08-31 09:02 | Outpatient (AMB) | payer OTHER, SELFPAY ==
[2023-08-31 09:08] VITALS: BP 126/73; PULSE 83
--- NOTE | 2023-08-31 09:08 | A.OFFVIS_ITS ---
Intake Vital Signs 08/31/23 09:08 Weight 198 lb BP 126/73 Blood Pressure Location Lt brachial Position Sitting Pulse 83 Intake Visit Reasons: S/p WLE pilonidal cyst, remington cleft Intake Note: Patient here s/p WLE pilonidal cyst on remington cleft. No longer taking rx pain meds. Patient c/o: pain when changing positions from sitting to standing. Wearing a maxi pad to hold pressure. Sleeve Separator Required: No Accompanied by: Self / Same As Patient Allergies Penicillins Allergy (Severe, Verified 08/31/23 09:09) anaphylaxis in mother - Pt did not react HPI HPI Comments History of Present Illness Details Patient has for follow-up. Aside from resolving incisional discomfort is doing well. He has no wound issues or complaints. [facility] Medical History Occasional cigarette smoker COVID-19 vaccine administered GERD (gastroesophageal reflux disease) Asthma Surgical History History of excision of pilonidal cyst (11/12/22) Hx of wisdom tooth extraction Pilonidal cyst Family History Father Heart attack Mother No problems noted. Social History Are you a primary pet caregiver to a significant other at home: No Do you presently have visiting nurse or other home services: No Alcohol intake: current Alcohol intake frequency: a few times a week Alcohol type: beer Patient Tobacco Use Status: Current everyday Tobacco user Tobacco use type: Cigarette Cigarettes Per Day: 10 Substance Use Type: Marijuana Physical Exam Vital Signs: Last Vital Signs Pulse 83 08/31/23 09:08 BP 126/73 08/31/23 09:08 Back/Spine/Pelvis Other: Pilonidal wound well healed. Sutures uneventfully removed. Dressing applied. Well tolerated. Assessment & Plan Assessment & Plan (1) Chronic recurrent pilonidal cyst: Code(s): L05.91 - Pilonidal cyst without abscess Plan Patient has been given local instructions including avoiding strenuous activities for next few weeks time, and will otherwise follow-up p.r.n.. All questions answered. Coding Level of Care Code Global (55730) Diagnoses Chronic recurrent pilonidal cyst L05.91
== END 2023-08-31 09:16 | disposition home or self-care (01) ==
PROVIDERS: PCP Internal Medicine; Visit Provider Surgery
DX: L05.91 Pilonidal cyst without abscess (principal)
CPT/HCPCS: 99024

== ENCOUNTER → 2023-08-31 09:02 | Outpatient (BNVA) | payer OTHER, SELFPAY | PROVIDERS: PCP Internal Medicine; Visit Provider Surgery ==

== ENCOUNTER 2023-09-28 08:32 | Outpatient (AMB) | payer OTHER, SELFPAY ==
[2023-09-28 08:37] VITALS: BP 129/72; PULSE 83
--- NOTE | 2023-09-28 08:37 | MHC.OFFVIS ---
Intake Vital Signs 09/28/23 08:37 Weight 195 lb BP 129/72 Blood Pressure Location Rt brachial Position Sitting Pulse 83 Intake Visit Reasons: wound check, bleeding, Hx WLE pilonidal cyst Intake Note: Patient here for wound check. Hx of WLE pilonidal cyst of cleft on 08-13-23. Patient c/o: bleeding, pain. Denies recent trauma to area. Reservation Sales Agent Required: No Accompanied by: Self / Same As Patient Allergies Penicillins Allergy (Severe, Verified 09/28/23 08:40) anaphylaxis in mother - Pt did not react HPI HPI Comments History of Present Illness Details Patient had a wound discharge of serosanguineous fluid approximately 5 days ago. Presents here for further evaluation. Prior to this he had no wound issues or complaints. He is steadily increasing his activity level. [facility] Medical History Occasional cigarette smoker COVID-19 vaccine administered GERD (gastroesophageal reflux disease) Asthma Surgical History History of excision of pilonidal cyst (11/12/22) Hx of wisdom tooth extraction Pilonidal cyst Family History Father Heart attack Mother No problems noted. Social History Are you a primary vision care associate to a significant other at home: No Do you presently have visiting nurse or other home services: No Alcohol intake: current Alcohol intake frequency: a few times a week Alcohol type: beer Patient Tobacco Use Status: Current everyday Tobacco user Tobacco use type: Cigarette Cigarettes Per Day: 10 Substance Use Type: Marijuana Physical Exam Vital Signs: Last Vital Signs Pulse 83 09/28/23 08:37 BP 129/72 09/28/23 08:37 Back/Spine/Pelvis Other: Wound is clean dry and intact with incision healing well. The most inferior aspect has a small eschar. With pressure nothing was drained from this. No evidence of any abscess or infective process or cellulitis. Assessment & Plan Assessment & Plan (1) Status post surgical removal of pilonidal cyst: Code(s): Z98.890 - Other specified postprocedural states Plan As noted above, patient most likely had with activity spontaneous drainage of a seroma. At present, no acute surgical intervention required. Patient was reassured. Should he have any further wound issues or complaints, he has been instructed to call the office or go the ER. All questions answered. Patient otherwise follow-up p.r.n.. Coding Level of Care Code Global (08944) Diagnoses Status post surgical removal of pilonidal cyst Z98.890
== END 2023-09-28 08:59 | disposition home or self-care (01) ==
PROVIDERS: PCP Internal Medicine; Visit Provider Surgery
DX: Z98.890 Other specified postprocedural states (principal)
CPT/HCPCS: 99024

== ENCOUNTER → 2023-09-28 08:32 | Outpatient (BNVA) | payer OTHER, SELFPAY | PROVIDERS: PCP Internal Medicine; Visit Provider Surgery ==

== ENCOUNTER 2024-05-31 11:10 | Outpatient (REF) | payer OTHER, SELFPAY ==
[2024-05-31 11:25] LABS: MANUAL DIFF FLAG NO
[2024-05-31 12:35] LABS: Basophils Percent Auto 0.2 % (0-2); Eosinophils Percent Auto 0.5 % (0-4); Hemoglobin 15.9 g/dl (14.0-18.0); Imm Gran Abs Auto 0.02 X10*3/uL (0.00-0.03); Imm Gran Pct Auto 0.2 % (0.0-0.4); Lymphocytes Absolute Auto 2.3 X10*3/uL (1.2-4.9); Lymphocytes Percent Auto 26.1 % (20-40); Mean Corpuscular HGB Conc 33.8 g/dl (31.0-36.0); Mean Corpuscular Hemoglobin 31.5 pg (27.0-33.0); Mean Corpuscular Volume 93.3 fL (80.0-98.0); Mean Platelet Volume 9.4 fL (9.4-12.4); Monocytes Absolute Auto 0.6 X10*3/uL (0.1-1.2); Monocytes Percent Auto 6.9 % (2-11); Neutrophils Absolute Auto 5.8 x10*3/uL (2.0-8.3); Neutrophils Percent Auto 66.1 % (45-73); Platelet Count 333 X10*3/uL (160-400); Red Blood Count 5.04 X10*6/uL (4.60-5.80); Red Cell Distribution Width 12.3 % (11.0-16.0); White Blood Count 8.8 X10*3/uL (4.8-10.8)
[2024-05-31 12:36] LABS: Appearance Urine Clear; Color Urine Dark Yellow; Glucose Urine UA Negative (Negative); Leukocyte Esterase Urine Negative (Negative); Nitrite Urine Negative (Negative); PH 5.5 (5.0-9.0); Specific Gravity - Urine >= 1.030 (1.005-1.025); UMIC TRIGGER UACC YES; Urine Blood Negative (Negative); Urine Ketones Negative (Negative); Urine Protein 30 (1+) mg/dL (Neg-Trace)
[2024-05-31 12:40] LABS: Bacteria Urine None Seen (None Seen); RBC Urine 0-2 /HPF (0-2); Squamous Epithelial Cell Urine 0-2 /HPF (0-2); WBC Urine 0-5 /HPF (0-5)
[2024-05-31 13:04] LABS: Alanine Aminotransferase 47 U/L (0-40); Albumin Level 4.8 g/dL (3.5-5.0); Anion Gap 16 (12-20); Aspartate Amino Transferase 23 U/L (5-37); Bilirubin Total 0.4 mg/dL (0.0-1.0); Blood Urea Nitrogen 10 mg/dL (9-16); Calcium 10.2 mg/dL (8.4-10.2); Carbon Dioxide 23 mmol/L (22-29); Chloride 103 mmol/L (96-108); Cholesterol 200 mg/dL (<200); Estimated Glomerular Filt Rate > 60; Glucose Fasting 100 mg/dL (60-99); HDL Cholesterol 42 mg/dL (>40); LDL Cholesterol Calculated 137 mg/dL (<100); Potassium 4.1 mmol/L (3.3-5.1); Sodium 138 mmol/L (135-145); Total Protein 7.8 g/dL (6.5-8.0); Triglycerides 109 mg/dL (<150)
[2024-05-31 13:22] LABS: Alkaline Phosphatase 75 U/L (39-117)
== END 2024-05-31 11:11 | disposition home or self-care (01) ==
LOC: HO.LNP 11:10
PROVIDERS: Visit Provider Internal Medicine
DX: Z00.00 Encounter for general adult medical examination without abnormal findings (principal); D72.820 Lymphocytosis (symptomatic)
CPT/HCPCS: 80053; 80061; 81001; 85025

== ENCOUNTER 2024-06-25 16:43 | Emergency (ER) | payer OTHER, SELFPAY ==
--- NOTE | ~2024-06-25 | CT_ITS ---
EXAMINATION: CT HEAD WITHOUT CONTRAST CLINICAL INFORMATION: Seizure. COMPARISON: None available. TECHNIQUE: Contiguous axial imaging was performed from the skull base to vertex without intravenous administration of contrast. This CT examination was performed using dose optimization techniques as appropriate, variously including the following: *Automated exposure control. *Adjustment of mA and/or kV according to patient size (this includes techniques or standardized protocols for targeted exams where dose is matched to indication/reason for exam; i.e. extremities or head). *Use of iterative reconstruction technique. DLP: 631 mGy-cm FINDINGS: There is no evidence of acute intracranial hemorrhage or edematous territorial infarction. Hernandez-white matter differentiation is preserved. There is no abnormal attenuation within the brain parenchyma. The ventricles are normal in morphology and size. No evidence for obstructive hydrocephalus. The suprasellar cistern remains widely patent. Normal positioning of the cerebellar tonsils. No abnormal mass effect or midline shift. No extra-axial fluid collections. No acute soft tissue or osseous abnormalities. Mild mucosal thickening of the paranasal sinuses. The mastoid air cells and middle ear cavities are clear. CT/CT head/brain wo IV con IMPRESSION: No evidence of acute intracranial hemorrhage or edematous territorial infarction. Electronically signed by: Geovanny Story DO 06/25/2024 06:46 PM EST
[2024-06-25 16:49] VITALS: BP 143/85; PULSE 150; RESP 18; TEMP 36.6; O2SAT 98; BMI 27.2
--- NOTE | 2024-06-25 16:49 | ED_ITS ---
HPI - General Adult General Chief complaint: General Medical Stated complaint: ? seizure,coughing up blood Time Seen by Provider: 06/25/24 17:43 Source: patient, RN notes reviewed and old records reviewed Mode of arrival: ambulatory Limitations: no limitations History of Present Illness ED Provider: Hortensia ROBERTSON narrative: 28-year-old male past medical history significant for asthma, substance abuse presents for evaluation of seizure-like activity. The patient was reportedly on the way to a wedding in the car with his family. His family reported that the patient had a 10-15 minute episode of ?shaking all over and he was not responding. ? When this was over the patient woke up but ?he was confused and did not know what happened. ? The patient has never had any history of seizures in the past. The patient admits that he has not been sleeping well because ?I have been using drugs. ? He reports that he has been using cocaine. He denies any history of IV drug abuse. He reports using 2 g of cocaine daily He currently has no complaints or concerns He did bite his tongue during the seizure Related Data Home Medications ?Medication ?Instructions ?Recorded ?Confirmed albuterol sulfate 90 mcg/actuation 1 inh inhalation Q4H PRN Wheezing 05/29/20 08/13/23 aerosol inhaler Allergies Allergy/AdvReac Type Severity Reaction Status Date / Time Penicillins Allergy Severe anaphylaxis Verified 06/25/24 16:54 in mother - Pt did not react Review of Systems 2 Constitutional: Constitutional: Denies body ache(s), Denies chills, Denies fever(s) and Denies headache(s) Eyes: Eyes: Denies blurry vision ENT: Denies vertigo, Denies dizziness and Denies headache(s) Cardiovascular: Cardiovascular: Denies chest pain and Denies dyspnea Respiratory: Respiratory: Denies cough and Denies dyspnea Gastrointestinal: Gastrointestinal: Denies abdominal pain, Denies nausea and Denies vomiting Musculoskeletal: Musculoskeletal: Denies back pain Integumentary/Breasts: Skin/Breast: Denies rash Neurologic: Denies confusion, Denies vertigo, Denies dizziness, Denies headache(s) and Reports seizure-like activity Psychiatric: Psychiatric: Denies confusion PMFSH Past Medical History Medical History Occasional cigarette smoker COVID-19 vaccine administered GERD (gastroesophageal reflux disease) Asthma Surgical History History of excision of pilonidal cyst (11/12/22) Hx of wisdom tooth extraction Pilonidal cyst Family History Family History Father Heart attack Mother No problems noted. Social History Social History Are you a primary child day care provider to a significant other at home: No Do you presently have visiting nurse or other home services: No Alcohol intake: current Alcohol intake frequency: a few times a week Alcohol type: beer Patient Tobacco Use Status: Current everyday Tobacco user Tobacco use type: Cigarette Cigarettes Per Day: 10 Smoked in Last 30 Days: Yes Use of substances other than those prescribed or required for medical reasons: Yes Substance Use Type: Crack/Cocaine Substance Use Frequency: Recent Binge Advance Directives: No Advance Directives Information Provided: No Do you have a plan to hurt others: No Plan Physical Exam ED Vital Signs: Vital Signs - 24 hr 06/25/24 16:49 06/25/24 17:09 06/25/24 18:00 Temperature 98 F 98.7 F Pulse Rate 150 H 146 H 113 H Respiratory Rate 18 28 H 19 Blood Pressure 143/85 H 160/74 H 136/93 H Pulse Oximetry 98 96 98 Oxygen Delivery Method Room Air Room Air Room Air 06/25/24 20:00 Temperature 98.3 F Pulse Rate 87 Respiratory Rate 22 H Blood Pressure 130/71 Pulse Oximetry 96 Oxygen Delivery Method Room Air BMI result Body Mass Index 27.2 Const General: No confusion Nutritional Appearance: well nourished Orientation/consciousness: No confusion HENMT Other: There is a small abrasion to the tip of the tongue with a small amount of edema. There was no active bleeding or deep laceration. Head: Yes normocephalic and Yes atraumatic Eyes Eyelids: Yes eyelids normal Conjunctivae: conjunctivae normal Sclerae: sclerae normal Corneas: corneas normal Pupils: Equal, round and reactive pupils present EOM: EOMs intact bilaterally Neck Neck: Yes full ROM Resp Effort & Inspection: normal respiratory effort, able to speak in complete sentences and not labored GI Inspection: No distended Palpation (GI): Soft to palpation, not firm, nontender, no guarding and not rigid Skin General skin exam: elasticity normal Neuro General: No confusion Cranial nerves: Yes CN's II-XII intact bilaterally, Yes Equal, round and reactive pupils present and Yes Bilaterally intact EOM present Cognition (Neuro): normal cognition Extrem Other: Moving all extremities well without any obvious deformities Course Course Course Narrative: This is a rapid medical exam. Deferred additional HPI, ROS, PE to primary provider. 28 yo male with a history of asthma here with concern for generalized shaking witnessed by family which lasted approximately about 10 minutes per family. No history of seizure disorder. Will need labs, BENITEZ, EKG, CT head Now alert. Has some confusion around date. Feels foggy. LIONEL Dave APRN Reevaluation(s) Reevaluation #1: Patient's lactate resolved with IV fluids. Again his symptoms are most consistent with a seizure. Patient has not had any further seizure activity despite nearly 4 hours of observation in the ER. Given that his symptoms are likely related to substance abuse and lack of sleep, I do not feel the patient requires antiepileptic medication at this time. He was instructed not to drive until cleared by Neurology and will be referred to neurology. Time: 20:37 Medications Administered Discontinued Medications Generic Name Dose Route Start Last Admin Trade Name No PRN Reason Stop Dose Admin Sodium Chloride 1,000 mls @ 999 mls/hr 06/25/24 18:00 06/25/24 19:30 Ns IV 06/25/24 19:00 Infused .Q1H1M KENDELL Infusion Lorazepam 2 mg 06/25/24 19:00 06/25/24 20:09 Lorazepam 2 Mg/Ml Vial IVPUSH 06/25/24 19:01 2 mg ONCE ONE Administration Medical Decision Making Medical Decision Making [facility] Narrative: 28-year-old male presents for evaluation of seizure-like activity that was witnessed by his family. This was about 10-15 minutes per family. He has no history of seizure disorder. Plan for labs including electrolytes and a CT scan of the brain. I suspect that the seizure-like activity was likely related to cocaine abuse and lack of sleep. The patient is currently awake, alert and oriented. He is tachycardic, his lactic acid was elevated to 7 which is likely a direct result of the seizure-like activity. Differential Diagnosis Differential Diagnoses: The differential diagnosis associated with the presentation includes Seizure-like activity Seizure Substance abuse Rhabdomyolysis Intracranial mass Lab Data MDM Lab Attestation statement: I reviewed the patient's lab results. No leukocytosis or anemia. Normal platelet count. No significant electrolyte abnormalities warranting intervention. The patient's lactic acid was elevated to 7.3. I do not believe this is related to sepsis 06/25/24 17:11 06/25/24 17:11 Labs: Lab Results 06/25/24 06/25/24 06/25/24 Range/Units 17:11 18:09 20:15 WBC 8.3 (4.8-10.8) X10*3/uL RBC 4.78 (4.60-5.80) X10*6/uL Hgb 15.1 (14.0-18.0) g/dl Hct 44.6 (42.0-52.0) % MCV 93.3 (80.0-98.0) fL MCH 31.6 (27.0-33.0) pg MCHC 33.9 (31.0-36.0) g/dl RDW 12.4 (11.0-16.0) % Plt Count 362 (160-400) X10*3/uL MPV 9.2 L (9.4-12.4) fL Immature Gran % (Auto) 0.1 (0.0-0.4) % Neut % (Auto) 63.4 (45-73) % Lymph % (Auto) 27.4 (20-40) % [place] % (Auto) 6.8 (2-11) % Eos % (Auto) 1.9 (0-4) % Baso % (Auto) 0.4 (0-2) % Lymph # (Auto) 2.3 (1.2-4.9) X10*3/uL [place] # (Auto) 0.6 (0.1-1.2) X10*3/uL Eos # (Auto) 0.2 (0.0-0.4) X10*3/uL Baso # (Auto) 0.0 (0.0-0.2) X10*3/uL Abs Immat Gran (auto) 0.01 (0.00-0.03) X10*3/uL Absolute Neuts (auto) 5.3 (2.0-8.3) x10*3/uL Absolute Nucleated RBC 0.000 (0.0-0.012) X10*3/uL Nucleated RBC % (auto) 0.0 (0.0-0.2) /100WBC Sodium 140 (135-145) mmol/L Potassium 3.6 (3.3-5.1) mmol/L Chloride 105 (96-108) mmol/L Carbon Dioxide 19 L (22-29) mmol/L Anion Gap 20 (12-20) BUN 17 H (9-16) mg/dL Creatinine 0.93 (0.5-1.4) mg/dL Estim Creat Clear Calc 125.9 Estimated GFR > 60 Random Glucose 131 H (60-115) mg/dL Lactic Acid 7.3 H* (0.5-2.0) mmol/L Lactic Acid F/U @ 2Hr 0.5 (0.5-2.0) mmol/L Calcium 9.5 D (8.4-10.2) mg/dL Phosphorus 3.4 (2.7-4.5) mg/dL Magnesium 2.0 (1.6-2.6) mg/dL Total Bilirubin 0.4 (0.0-1.0) mg/dL Direct Bilirubin 0.2 (0.0-0.5) mg/dL AST 27 (5-37) U/L ALT 30 (0-40) U/L Alkaline Phosphatase 63 (39-117) U/L Total Creatine Kinase 197 H (38-174) U/L Troponin I High Sens < 2.7 (<3.5-35.0) ng/L Total Protein 7.8 (6.5-8.0) g/dL Albumin 4.8 (3.5-5.0) g/dL Urine Color Yellow Urine Appearance Clear Urine pH 5.0 (5.0-9.0) Ur Specific [place] >= 1.030 H (1.005-1.025) Urine Protein 100 (2+) H (Neg-Trace) mg/dL Urine Glucose (UA) Negative (Negative) mg/dL Urine Ketones 15 (Negative) mg/dL Urine Blood Negative (Negative) Urine Nitrite Negative (Negative) Ur Leukocyte Esterase Negative (Negative) Urine RBC 0-2 (0-2) /HPF Urine WBC 0-5 (0-5) /HPF Ur Squamous Epith Cells 0-2 (0-2) /HPF Urine Bacteria None Seen (None Seen) Hyaline Casts 3-5 (0-2) /LPF Urine Opiates Screen Not Detected (Not Detect) Ur Buprenorphine Scrn Not Detected (Not Detect) ng/mL Ur Oxycodone Screen Not Detected (Not Detect) ng/mL Urine Methadone Screen Not Detected (Not Detect) ng/mL Urine Fentanyl Screen Not Detected (Not Detect) Ur Barbiturates Screen Not Detected (Not Detect) Ur Phencyclidine Scrn Not Detected (Not Detect) Ur Amphetamines Screen POSITIVE H (Not Detect) U Benzodiazepines Scrn Not Detected (Not Detect) Urine Cocaine Screen POSITIVE H (Not Detect) U Marijuana (THC) Screen POSITIVE H (Not Detect) Ethyl Alcohol < 10 mg/dL Independent Interpretation I performed an independent interpretation of an: EKG (Sinus tachycardia rate of 145 beats per minute) Discharge Plan Discharge Clinical Impression: Observed seizure-like activity Patient Disposition: Home, Self-Care Instructions: New-Onset Seizure in Adults (ED) Additional Instructions: Your workup in the ER today was reassuring. You likely had a seizure related to substance abuse and lack of sleep. You should not operate a car or other heavy machinery until you are cleared to do so by Neurology Call Neurology, Dr. Baker at the number provided on Thursday Prescriptions: No Action albuterol sulfate 90 mcg/actuation HFA aerosol inhaler 1 inh inhalation Q4H PRN (Reason: Wheezing) Referrals: Pamela Baker MD [Physician] - (new onset seizure) Print Language: Croatian
--- NOTE | 2024-06-25 16:51 | ECG_ITS ---
Test Reason : weakness Blood Pressure : / mmHG Vent. Rate : 145 BPM Atrial Rate : 145 BPM P-R Int : 128 ms QRS Dur : 092 ms QT Int : 352 ms P-R-T Axes : 070 091 044 degrees QTc Int : 546 ms Sinus tachycardia Rightward axis Borderline ECG No previous ECGs available Referred By: Lyudmila Dave Electronically Signed By:Puneet Vyas
[2024-06-25 17:09] VITALS: BP 160/74; PULSE 146; RESP 28; O2SAT 96
[2024-06-25 17:16] LABS: MANUAL DIFF FLAG NO
[2024-06-25 17:20] LABS: Basophils Percent Auto 0.4 % (0-2); Eosinophils Absolute Auto 0.2 X10*3/uL (0.0-0.4); Eosinophils Percent Auto 1.9 % (0-4); Hematocrit 44.6 % (42.0-52.0); Hemoglobin 15.1 g/dl (14.0-18.0); Imm Gran Abs Auto 0.01 X10*3/uL (0.00-0.03); Imm Gran Pct Auto 0.1 % (0.0-0.4); Lymphocytes Absolute Auto 2.3 X10*3/uL (1.2-4.9); Lymphocytes Percent Auto 27.4 % (20-40); Mean Corpuscular HGB Conc 33.9 g/dl (31.0-36.0); Mean Corpuscular Hemoglobin 31.6 pg (27.0-33.0); Mean Corpuscular Volume 93.3 fL (80.0-98.0); Mean Platelet Volume 9.2 fL (9.4-12.4); Monocytes Absolute Auto 0.6 X10*3/uL (0.1-1.2); Monocytes Percent Auto 6.8 % (2-11); Neutrophils Absolute Auto 5.3 x10*3/uL (2.0-8.3); Neutrophils Percent Auto 63.4 % (45-73); Platelet Count 362 X10*3/uL (160-400); Red Blood Count 4.78 X10*6/uL (4.60-5.80); Red Cell Distribution Width 12.4 % (11.0-16.0); White Blood Count 8.3 X10*3/uL (4.8-10.8)
[2024-06-25 17:34] LABS: Alanine Aminotransferase 30 U/L (0-40); Albumin Level 4.8 g/dL (3.5-5.0); Alkaline Phosphatase 63 U/L (39-117); Anion Gap 20 (12-20); Aspartate Amino Transferase 27 U/L (5-37); Bilirubin Direct 0.2 mg/dL (0.0-0.5); Bilirubin Total 0.4 mg/dL (0.0-1.0); Blood Urea Nitrogen 17 mg/dL (9-16); Calcium 9.5 mg/dL (8.4-10.2); Carbon Dioxide 19 mmol/L (22-29); Chloride 105 mmol/L (96-108); Creatinine Clr Calc Pharmacy 125.9; Estimated Glomerular Filt Rate > 60; Glucose Random 131 mg/dL (60-115); Potassium 3.6 mmol/L (3.3-5.1); Sodium 140 mmol/L (135-145); Total Protein 7.8 g/dL (6.5-8.0)
[2024-06-25 17:39] LABS: Ethanol < 10 mg/dL
[2024-06-25 17:43] LABS: Lactic Acid 7.3 mmol/L (0.5-2.0); Troponin-I High Sensitivity < 2.7 ng/L (<3.5-35.0)
--- NOTE | 2024-06-25 17:45 | PC.NURSE ---
critical lab value received at this time - lactic of 7.3 - PA Warren notified/aware of results.
--- NOTE | 2024-06-25 17:55 | PC.NURSE ---
pt to CT at this time.
[2024-06-25 18:00] VITALS: BP 136/93; PULSE 113; RESP 19; TEMP 37.1; O2SAT 98
--- NOTE | 2024-06-25 18:09 | PC.NURSE ---
urine obtained/sent to lab. IVF infusing per provider order. pt more alert at this time. answer questions/following commands appropriately. vss and up to date aside from remaining sinus tachy on the cardiac nurse practitioner - pt denies chest pain/palpitations. on RA w/o difficulty - no sob/wob noted. respirations even/unlabored. seizure precautions remain in place. plan of care ongoing.
[2024-06-25 18:10] LABS: Phosphorus 3.4 mg/dL (2.7-4.5)
[2024-06-25 18:15] LABS: Appearance Urine Clear; Color Urine Yellow; Glucose Urine UA Negative (Negative); Leukocyte Esterase Urine Negative (Negative); Nitrite Urine Negative (Negative); Specific Gravity - Urine >= 1.030 (1.005-1.025); UMIC TRIGGER UACC YES; Urine Blood Negative (Negative); Urine Ketones 15 mg/dL (Negative); Urine Protein 100 (2+) mg/dL (Neg-Trace)
[2024-06-25 18:19] LABS: Bacteria Urine None Seen (None Seen); RBC Urine 0-2 /HPF (0-2); Squamous Epithelial Cell Urine 0-2 /HPF (0-2); WBC Urine 0-5 /HPF (0-5)
[2024-06-25] MEDS: 0.9 % Sodium Chloride 1,000 ML 999 ML IV (18:23)
[2024-06-25 18:26] LABS: Amphetamine Screen Urine POSITIVE (Not Detect); Barbiturates, Urine Not Detected (Not Detect); Benzodiazepines Screen Urine Not Detected (Not Detect); Buprenorphine Scr Not Detected (Not Detect); Cannabinoid Screen Urine POSITIVE (Not Detect); Cocaine Screen Urine POSITIVE (Not Detect); Fentanyl, urine Not Detected (Not Detect); Methadone Screen, Urine Not Detected (Not Detect); Opiate Screen Urine Not Detected (Not Detect); Oxycodone Screen Urine Not Detected (Not Detect); Phencyclidine Screen Urine Not Detected (Not Detect)
[2024-06-25 19:14] LABS: Reflex Lactate? Lactic Acid Added
[2024-06-25 20:00] VITALS: BP 130/71; PULSE 87; RESP 22; TEMP 36.8; O2SAT 96
[2024-06-25] MEDS: LORazepam 2 MG/ML VIAL IVPUSH (20:09)
--- NOTE | 2024-06-25 20:20 | PC.NURSE ---
Pt medicated per [facility] Plan of care ongoing.
[2024-06-25 20:33] LABS: ~Lactic Acid-LAB USE ONLY 0.5 mmol/L (0.5-2.0)
[2024-06-25 20:56] VITALS: BP 130/71; PULSE 87; RESP 22; TEMP 36.8; O2SAT 96
--- OUTSIDE RECORDS SUMMARY | 2024-06-29 11:52 | XMS_ITS ---
Author Organization Naveed Mueller MD Address [address] [place] [phone] Care Team Providers Care Bindery Worker Name Role Phone Naveed Mueller Primary Care Provider ALLERGIES Allergen (clinical drug ingredient) Drug/Non Drug Allergy documented on EMR Reaction Allergy Type Onset Date Status Penicillin G Benzathine ? Drug Allergy Active erythromycin Erythromycin Rash Drug Allergy A ctive Azithromycin Rash Drug Allergy Acti ve REASON FOR VISIT 2 week MEDICATIONS Medication SIG (Take, Route, Frequency, Duration) Notes Start Date End Date Status Advair Diskus 250-50 MCG/DOSE as directed Inhalation Not-T aking Citalopram Hydrobromide 10 MG TAKE 1 TABLET BY MOUTH DAILY IN THE AFTERNOON Active Citalopram Hydrobromide 20 MG TAKE 1 TABLET BY MOUTH DAILY Active Doxycycline Hyclate 100 MG 1 capsule Orally Twice a day for 10 days 06/10/2024 Not-Taking Albuterol Sulfate HFA 108 (90 Base) MCG/ACT inhale 2 puffs by mouth and into the lungs every 4 hours if needed Inhalation every 4 hrs Active VITAL SIGNS BMI 27.83 kg/m2 06/24/2024 Blood pressure systolic 122 mm Hg 06/24/20 24 Blood pressure diastolic 84 mm Hg 024 Height 70 in 06/24/2024 Weight 194 lbs 06/24/2024 Encounters Encounter Location Date Provider Diagnosis Naveed Mueller MD [address] [place], [place] [id number] 06/24/2024 Naveed Vaughan L02.92 ASSESSMENTS Encounter Date Diagnosis Assessment Notes Treatment Notes Treatment Clinical Notes 06/24/2024 Boil (ICD-10 - L02.92) has resolved PLAN OF TREATMENT Treatment Notes Assessment Notes Boil has resolved Next Appt Details Follow Up: 2 Months, Reason: Provider Name:Naveed dobson, 07/22/2024 11:45:00 AM, [address] [place] [address], [address] [facility], [place], [place], [phone], Provider Name:Naveed dobson, 08/25/2024 10:00:00 AM, [address] [place] [address], [address], [place], [place], [phone], Progress Notes * Examination Category Sub-Category Detail Notes General Examination GENERAL APPEARANCE: alert, w ell hydrated, in no distress
--- OUTSIDE RECORDS SUMMARY | 2024-06-29 11:52 | XMS_ITS | Patient Health Record ---
Author Organization Naveed Mueller MD Address [address] [place], [place] [id number] Care Team Providers Care Wood Flour Miller Name Role Phone Naveed Mueller Primary Care Provider [phone] ALLERGIES Allergen (clinical drug ingredient) Drug/Non Drug Allergy documented on EMR Reaction Allergy Type Onset Date Status Penicillin G Benzathine ? Drug Allergy Active erythromycin Erythromycin Rash Drug Allergy A ctive Azithromycin Rash Drug Allergy Acti ve RESULTS Component Value Reference Range Notes Pathology Reviewed date:08/16/2023 04:33:51 PM Interpretation: Performing Lab:[facility], [address] [place] [phone] Notes/Report: Complete Blood Count Auto Di ff Reviewed date:05/31/2024 12:52:14 PM Interpretation: Performing Lab:[facility], [address] [place] [phone] Notes/Report: White Blood Count 8.8 4.8-10.8 X10*3/uL Red Blood Count 5.04 4.60-5.80 X10*6/uL Hemoglobin 15.9 14.0-18.0 g/dl Hematocrit 47.0 42.0-52.0 % Mean Corpuscular Volume 93.3 80.0-98.0 fL Mean Corpuscular Hemoglobin 31.5 27.0-33.0 pg Mean Corpuscular HGB Conc 33.8 31.0-36.0 g/dl Red Cell Distribution Width 12.3 11.0-16.0 % Platelet Count 333 160-400 X10*3/uL Mean Platelet Volume 9.4 9.4-12.4 fL Neutrophils Percent Auto 66.1 45-73 % Imm Gran Pct Auto 0.2 0.0-0.4 % Lymphocytes Percent Auto 26.1 20-40 % Monocytes Percent Auto 6.9 2-11 % Eosinophils Percent Auto 0.5 0-4 % Basophils Percent Auto 0.2 0-2 % NRBC Pct Auto 0.0 0.0-0.2 /100WBC Neutrophils Absolute Auto 5.8 2.0-8.3 x10*3/u L Imm Gran Abs Auto 0.02 0.00-0.03 X10*3/uL Lymphocytes Absolute Auto 2.3 1.2-4.9 X10*3/u L Monocytes Absolute Auto 0.6 0.1-1.2 X10*3/uL Eosinophils Absolute Auto 0.0 0.0-0.4 X10*3/u L Basophils Absolute Auto 0.0 0.0-0.2 X10*3/uL NRBC Abs Auto 0.000 0.0-0.012 X10*3/uL Comprehensive [place]. Panel Fa st Reviewed date:05/31/2024 03:07:53 PM Interpretation: Performing Lab:[facility], [address] [place] [phone] Notes/Report: Sodium 138 135-145 mmol/L Potassium 4.1 3.3-5.1 mmol/L Chloride 103 96-108 mmol/L Carbon Dioxide 23 22-29 mmol/L Anion Gap 16 12-20 Blood Urea Nitrogen 10 9-16 mg/dL Creatinine 0.71 0.5-1.4 mg/dL Estimated Glomerular Filt Rate > 60 Chronic Kidney Disease: Estimated GFR < 60 mL/min/1.73m2 Severe Kidney Disease: Estimated GFR < 15 mL/min/1.73m2 Glucose Fasting 100 60-99 mg/dL A fasting glucose from 100-125 mg/dl is considered impaired (pre-diabetes). Calcium 10.2 8.4-10.2 mg/dL Bilirubin Total 0.4 0.0-1.0 mg/dL Aspartate Amino Transferase 23 5-37 U/L Alanine Aminotransferase 47 0-40 U/L Total Protein 7.8 6.5-8.0 g/dL Albumin Level 4.8 3.5-5.0 g/dL Alkaline Phosphatase 75 39-117 U/L Lipid Panel Reviewed date:05/31/2024 02:29:21 PM Interpretation: Performing Lab:[facility], [address] [place] [phone] Notes/Report: Triglycerides 109 <150 mg/dL Desirable Triglyceride: less than 150 mg/dL Borderline High Triglyceride 150-199 mg/dL High Triglyceride: 200-499 mg/dL Very High Triglyceride: greater than or equal to 5OO mg/dL Cholesterol 200 <200 mg/dL Desirable Cholesterol: less than 200 mg/dL Borderline High Cholesterol: 200-239 mg/dL High Cholesterol: greater than 239 mg/dL LDL Cholesterol Calculated 137 <100 mg/dL Desirable LDL: less than 100 mg/dL Near Optimal/Above Optimal LDL: 110-129 mg/dL Borderline High LDL: 130-159 mg/dL High LDL: 160-189 mg/dL Very High LDL: greater than or equal to 190 mg/dL HDL Cholesterol 42 >40 mg/dL Desirable HDL: greater than 40 mg/dL Note: This HDL assay may give artificially low results in patients with liver disease. UA ClnCatch+Micro w/rflx Cul t Reviewed date:05/31/2024 12:51:51 PM Interpretation: Performing Lab:[facility], [address] [place] [phone] Notes/Report: Urine, Clean Catch Color Urine Dark Yellow Appearance Urine Clear PH 5.5 5.0-9.0 Glucose Urine UA Negative Negative mg/dL Urine Blood Negative Negative Specific [place] - Urine >= 1.030 1.005-1.025 Urine Protein 30 (1+) Neg-Trace mg/dL Urine Ketones Negative Negative mg/dL Nitrite Urine Negative Negative Leukocyte Esterase Urine Negative Negative RBC Urine 0-2 0-2 /HPF WBC Urine 0-5 0-5 /HPF Squamous Epithelial Cell Urine 0-2 0-2 /HPF Bacteria Urine None Seen None Seen Hyaline Casts Urine 3-5 0-2 /LPF Complete Blood Count Auto Di ff Reviewed date:06/26/2024 11:56:25 AM Interpretation: Performing Lab:[facility], [address] [place] [phone] Notes/Report: White Blood Count 8.3 4.8-10.8 X10*3/uL Red Blood Count 4.78 4.60-5.80 X10*6/uL Hemoglobin 15.1 14.0-18.0 g/dl Hematocrit 44.6 42.0-52.0 % Mean Corpuscular Volume 93.3 80.0-98.0 fL Mean Corpuscular Hemoglobin 31.6 27.0-33.0 pg Mean Corpuscular HGB Conc 33.9 31.0-36.0 g/dl Red Cell Distribution Width 12.4 11.0-16.0 % Platelet Count 362 160-400 X10*3/uL Mean Platelet Volume 9.2 9.4-12.4 fL Neutrophils Percent Auto 63.4 45-73 % Imm Gran Pct Auto 0.1 0.0-0.4 % Lymphocytes Percent Auto 27.4 20-40 % Monocytes Percent Auto 6.8 2-11 % Eosinophils Percent Auto 1.9 0-4 % Basophils Percent Auto 0.4 0-2 % NRBC Pct Auto 0.0 0.0-0.2 /100WBC Neutrophils Absolute Auto 5.3 2.0-8.3 x10*3/u L Imm Gran Abs Auto 0.01 0.00-0.03 X10*3/uL Lymphocytes Absolute Auto 2.3 1.2-4.9 X10*3/u L Monocytes Absolute Auto 0.6 0.1-1.2 X10*3/uL Eosinophils Absolute Auto 0.2 0.0-0.4 X10*3/u L Basophils Absolute Auto 0.0 0.0-0.2 X10*3/uL NRBC Abs Auto 0.000 0.0-0.012 X10*3/uL Liver Panel Reviewed date:06/26/2024 11:56:42 AM Interpretation: Performing Lab:[facility], [address] [place] [phone] Notes/Report: Bilirubin Total 0.4 0.0-1.0 mg/dL Bilirubin Direct 0.2 0.0-0.5 mg/dL Aspartate Amino Transferase 27 5-37 U/L Alanine Aminotransferase 30 0-40 U/L Total Protein 7.8 6.5-8.0 g/dL Albumin Level 4.8 3.5-5.0 g/dL Alkaline Phosphatase 63 39-117 U/L Basic Metabolic Panel Reviewed date:06/26/2024 11:57:52 AM Interpretation: Performing Lab:[address] [phone] Notes/Report: Sodium 140 135-145 mmol/L Potassium 3.6 3.3-5.1 mmol/L Chloride 105 96-108 mmol/L Carbon Dioxide 19 22-29 mmol/L Anion Gap 20 12-20 Blood Urea Nitrogen 17 9-16 mg/dL Creatinine 0.93 0.5-1.4 mg/dL Creatinine Clr Calc Pharmacy 125.9 eGFR (calculated from the MDRD study equation) and eCrCl (calculated from the Cockcroft-Gault equation) are based on different parameters and may not yield comparable results. If eCrCl result is absurd, please check patient's height/weight. Estimated Glomerular Filt Rate > 60 Chronic Kidney Disease: Estimated GFR < 60 mL/min/1.73m2 Severe Kidney Disease: Estimated GFR < 15 mL/min/1.73m2 Glucose Random 131 60-115 mg/dL Calcium 9.5 8.4-10.2 mg/dL Lactic Acid Reviewed date:06/26/2024 11:56:05 AM Interpretation: Performing Lab:[address] [phone] Notes/Report: Lactic Acid 7.3 0.5-2.0 mmol/L Critical value for test(LATIC): Results called to and read back by: COSTA Person calling: CORY Date: 06/25/24 Time:1741 Phosphorus Reviewed date:06/26/2024 11:55:46 AM Interpretation: Performing Lab:[facility], [address] [place] [phone] Notes/Report: Phosphorus 3.4 2.7-4.5 mg/dL Magnesium Reviewed date:06/26/2024 11:51:34 AM Interpretation: Performing Lab:[address] [phone] Notes/Report: Magnesium 2.0 1.6-2.6 mg/dL Creatine Kinase Total Reviewed date:06/26/2024 11:57:28 AM Interpretation: Performing Lab:[facility], [address] [place] [phone] Notes/Report: Creatine Kinase Total 197 38-174 U/L Troponin-I High Sensitivity Reviewed date:06/26/2024 11:51:55 AM Interpretation: Performing Lab:[facility], [address] [place] [phone] Notes/Report: Troponin-I High Sensitivity < 2.7 <3.5-35.0 ng/ L The [place] high sensitivity Troponin-I results should be used in conjunction with other diagnostic information such as ECG, clinical observations and information, and patient symptoms to aid in the diagnosis of [facility]. Drug Screen Urine Reviewed date:06/26/2024 11:50:33 AM Interpretation: Performing Lab:[facility], [address] [place] [phone] Notes/Report: Opiate Screen Urine Not Detected Not Detect Opiate cut-off is 300 ng/mL. Positive results are unconfirmed and should not be used for non-medical purposes. Barbiturates, Urine Not Detected Not Detect Barbiturate cut-off is 200 ng/mL. Positive results are unconfirmed and should not be used for non-medical purposes. Phencyclidine Screen Urine Not Detected Not Detect Phencyclidine cut-off is 25 ng/mL. Positive results are unconfirmed and should not be used for non-medical purposes. Amphetamine Screen Urine POSITIVE Not Detect Amphetamine cut-off is 1000 ng/mL. Positive results are unconfirmed and should not be used for non-medical purposes. Benzodiazepines Screen Urine Not Detected Not Detect Benzodiazepine cut-off is 200 ng/mL. Positive results are unconfirmed and should not be used for non-medical purposes. Cocaine Screen Urine POSITIVE Not Detect Cocaine cut-off is 300 ng/mL. Positive results are unconfirmed and should not be used for non-medical purposes. Cannabinoid Screen Urine POSITIVE Not Detect Cannabinoid cut-off is 50 ng/mL. Positive results are unconfirmed and should not be used for non-medical purposes. Methadone Screen, Urine Not Detected Not Detect ng/mL Methadone cut-off is 300 ng/mL. Positive results are unconfirmed and should not be used for non-medical purposes. Fentanyl, urine Not Detected Not Detect Fentanyl cut-off is 1 ng/mL. Positive results are unconfirmed and should not be used for non-medical purposes. Oxycodone Screen Urine Not Detected Not Detect ng/mL Oxycodone cut-off is 100 ng/mL. Positive results are unconfirmed and should not be used for non-medical purposes. Buprenorphine Scr Not Detected Not Detect ng/mL Buprenorphine cut-off is 5 ng/mL. Positive results are unconfirmed and should not be used for non-medical purposes. Ethanol Reviewed date:06/26/2024 11:48:11 AM Interpretation: Performing Lab:[address] [phone] Notes/Report: Ethanol < 10 Serum/plasma ethanol results are to be used for medical/treatment purposes only. Lactic Acid-LAB USE ONLY Reviewed date:06/26/2024 11:48:20 AM Interpretation: Performing Lab:[address] [phone] Notes/Report: Lactic Acid-LAB USE ONLY 0.5 0.5-2.0 mmol/L UA ClnCatch+Micro w/rflx Cul t Reviewed date:06/26/2024 11:55:33 AM Interpretation: Performing Lab:[facility], [address] [place] [phone] Notes/Report: [id number] Urine, Clean Catch Color Urine Yellow Appearance Urine Clear PH 5.0 5.0-9.0 Glucose Urine UA Negative Negative mg/dL Urine Blood Negative Negative Specific [place] - Urine >= 1.030 1.005-1.025 Urine Protein 100 (2+) Neg-Trace mg/dL Urine Ketones 15 Negative mg/dL Nitrite Urine Negative Negative Leukocyte Esterase Urine Negative Negative RBC Urine 0-2 0-2 /HPF WBC Urine 0-5 0-5 /HPF Squamous Epithelial Cell Urine 0-2 0-2 /HPF Bacteria Urine None Seen None Seen Hyaline Casts Urine 3-5 0-2 /LPF CT head/brain wo con Reviewed date:06/26/2024 11:51:25 AM Interpretation: Performing Lab: Notes/Report: [address] [address] [address] Scan Report Signed Patient: Rosaline Conteh MR#: [id number] : 1995 Acct:[id number] Age/Sex: 28 / M ADM Date: 06/25/24 Loc: HO.ED Attending Dr: Ordering Physician: Lyudmila Dave NP Date of Service: 06/25/24 Procedure(s): CT head/brain wo IV con Accession Number(s): [id number] cc: Naveed Mueller MD; Lyudmila Dave NP EXAMINATION: CT HEAD WITHOUT CONTRAST CLINICAL INFORMATION: Seizure. COMPARISON: None available. TECHNIQUE: Contiguous axial imaging was performed from the skull base to vertex without intravenous administration of contrast. This CT examination was performed using dose optimization techniques as appropriate, variously including the following: *Automated exposure control. *Adjustment of mA and/or kV according to patient size (this includes techniques or standardized protocols for targeted exams where dose is matched to indication/reason for exam; i.e. extremities or head). *Use of iterative reconstruction technique. DLP: 631 mGy-cm FINDINGS: There is no evidence of acute intracranial hemorrhage or edematous territorial infarction. Hernandez-white matter differentiation is preserved. There is no abnormal attenuation within the brain parenchyma. The ventricles are normal in morphology and size. No evidence for obstructive hydrocephalus. The suprasellar cistern remains widely patent. Normal positioning of the cerebellar tonsils. No abnormal mass effect or midline shift. No extra-axial fluid collections. No acute soft tissue or osseous abnormalities. Mild mucosal thickening of the paranasal sinuses. The mastoid air cells and middle ear cavities are clear. CT/CT head/brain wo IV con IMPRESSION: No evidence of acute intracranial hemorrhage or edematous territorial infarction. Electronically signed by: Geovanny Story DO 06/25/2024 06:46 PM [facility] Dictated By: Facundo Story DO Signed By: <Electronically signed by Facundo Story DO in OV> 06/25/24 1846 DD/ 1756 TD/TT: 06/25/24 1800 [employer]er: EPHRAIM REASON FOR REFERRAL No Information MEDICATIONS Medication SIG (Take, Route, Frequency, Duration) Notes Start Date End Date Status Albuterol Sulfate HFA 108 (90 Base) MCG/ACT inhale 2 puffs by mouth and into the lungs every 4 hours if needed Inhalation every 4 hrs Active Citalopram Hydrobromide 20 MG TAKE 1 TABLET BY MOUTH DAILY Active Citalopram Hydrobromide 10 MG TAKE 1 TABLET BY MOUTH DAILY IN THE AFTERNOON Active Doxycycline Hyclate 100 MG 1 capsule Orally Twice a day for 10 days 06/10/2024 Not-Taking Advair Diskus 250-50 MCG/DOSE as directed Inhalation Not-T aking IMMUNIZATIONS Vaccine Route Administration Date Status Comme nts Fluarix Quadrivalent IM Intramuscular 05/10/2018 Administe red Fluarix Quadrivalent IM Intramuscular 03/22/2019 Administe red Fluarix Quadrivalent IM Intramuscular 05/18/2020 Administe red SARS-COV-2 Pfizer Unknown 11/09/2020 Administered SARS-COV-2 Pfizer Unknown 11/30/2020 Administered Fluarix Quadrivalent Unknown 08/31/2017 Refused TDaP Unknown 03/16/2018 Refused Fluarix Quadrivalent Unknown 04/16/2021 Refused Fluarix Quadrivalent Unknown 04/15/2022 Refused SOCIAL HISTORY Tobacco Use: Social History Observation Description Date Details (start date - stop date) Never Smoker NA - NA Sex Assigned At : Social History Observation Description Sex Assigned At Unknown Tobacco Use/Smoking Question Answer Notes Patient is a nonsmoker Additional Findings: Tobacco Non-User Cu rrent non-smoker, currently using no form of tobacco Alcohol Screen Question Answer Notes Did you have a drink contain ing alcohol in the past year? Yes How often did you have a dri nk containing alcohol in the past year? Monthly or less (1 point) How many drinks did you have on a typical day when you were drinking in the past year? 1 or 2 drinks (0 point) How often did you have 6 or more drinks on one occasion in the past year? Never (0 point) Points 1 Interpretation Negative PROBLEMS Problem Type ICD Code Onset Dates Problem Status W/U Status Risk SNOMED Code Notes Problem Irritable bowel syndrome with diarrhea (K58.0) Active confirmed 320791348 Problem Mild intermittent asthma without complication (J45.20) Active confirmed 503298702 Problem Lymphocytosis (D72.820) Active confirmed 48477526 Problem Nevus (D22.9) Active confirmed 00330533 Problem Lumbar disc disease (M51.9) Active confirmed 746901232 Problem Other elevated white blood cell (WBC) count (D72.828) Active confirmed 075645237 Problem Excessive sleepiness (G47.10) Active confirmed 38423569 Problem Dysthymia (F34.1) Active confirmed 7866 7006 Problem Active substance abuse (F19.10) Active confirmed 48325893 VITAL SIGNS Blood pressure diastolic 80 mm Hg 06/28/2024 Height 70 in 06/28/2024 Blood pressure systolic 116 mm Hg 06/28/2024 Weight 193 lbs 06/28/2024 BMI 27.69 kg/m2 06/28/2024 Encounters Encounter Location Date Provider Diagnosis Naveed Mueller MD [address] [place] [id number] 06/06/2024 Naveed Mueller MD [address] [place] [id number] 05/31/2024 Naveed Mueller Lymphocytosis D72.82 0 and Blood tests for routine general physical examination Z00.00 Naveed Mueller MD [address] [place] [id number] 12/01/2023 Naveed Mueller MD [address] [place] [id number] 08/06/2023 Naveed Mueller MD [address] [place] [id number] 01/07/2024 Naveed Mueller Dysthymia F34.1 and Active substance abuse F19.10 Naveed Mueller MD [address] [place] [id number] 02/08/2024 Naveed Mueller Dysthymia F34.1 Naveed Mueller MD [address] [place] [id number] 03/10/2024 Naveedkevin Mueller Dysthymia F34.1 and Mild intermittent asthma without complication J45.20 Naveed Mueller MD [address] [place] [id number] 06/10/2024 Naveed Mueller Dysthymia F34.1 ; Boil L02.92 and Pilonidal cyst L05.91 Naveed Mueller MD [address] [place] [id number] 06/24/2024 Naveed Mueller Boil L02.92 Naveed Mueller MD [address] [place] [id number] 06/28/2024 Naveed Mueller Seizure R56.9 and Active substance abuse F19.10 Naveed Mueller MD [address] [place], [place] [id number] 01/15/2024 Naveed Mueller Dysthymia F34.1 Naveed Mueller MD [address] [place] [id number] 06/27/2024 Naveed Mueller ASSESSMENTS Encounter Date Diagnosis Assessment Notes Treatment Notes Treatment Clinical Notes 05/31/2024 Lymphocytosis (ICD-10 - D72.820) 05/31/2024 Blood tests for routine general physical examination (ICD-10 - Z00.00) 01/07/2024 Dysthymia (ICD-10 - F34.1) not actively suicidal. is willing to go to counsellor.patient verbalized understanding of medication and directions for use 01/07/2024 Active substance abuse (ICD-10 - F19.10) 02/08/2024 Dysthymia (ICD-10 - F34.1) patient verbalized understanding of medication and directions for use 03/10/2024 Mild intermittent asthma without complication (ICD-10 - J45.20) hardly ever using inhaler. 03/10/2024 Dysthymia (ICD-10 - F34.1) doing great on meds.will continue current regiment 06/10/2024 Boil (ICD-10 - L02.92) may need it drained, will observe and treat with antibiotic 06/10/2024 Dysthymia (ICD-10 - F34.1) doing well but did have a relapse of cocaine, will continue current regiment 06/24/2024 Boil (ICD-10 - L02.92) has resolved 06/28/2024 Seizure (ICD-10 - R56.9) is secondary to overuse of cocaine and not a seizure disorder. is going to go to neurology and is going to get into drug treatment. going to see worm picker at [facility] 01/15/2024 Dysthymia (ICD-10 - F34.1) 06/10/2024 Pilonidal cyst (ICD-10 - L05.91) maybe the ab will help it, will monitor 06/28/2024 Active substance abuse (ICD-10 - F19.10) 03/10/2024 Other Total time spen t on the date of the encounter is 35 minutes including both face to face time spent and time spent reviewing documentation, and counseling the patient. PLAN OF TREATMENT Pending Test Test Name Order Date XR CHEST 2 VIEW PA & LAT 05/14/2020 ECHO 04/22/2022 Next Appt Details Provider Name:Naveed Quiroz Bernardo ier, 07/22/2024 11:45:00 AM, [address] [place] [address], [address], [place], [place], [phone], Provider Name:Naveed Chang ier, 08/25/2024 10:00:00 AM, [address] [facility], [address], [place], [place], [phone], Insurance Providers Payer Name Payer Address Payer Phone Subscriber Number Group Number Insured Name Patient Relationship to Insured Coverage Start Date Coverage End Date [facility] [address] [facility] [address] [place] [phone] [id number] ROSALINE CONTEH Self - patient is the insured MEDICAL (GENERAL) HISTORY Medical History History ICD Code Colonoscopy 2014 and Endoscopy same time
--- OUTSIDE RECORDS SUMMARY | 2024-06-29 11:52 | XMS_ITS ---
Author Organization Naveed Mueller MD Address [address] [place] [phone] Care Team Providers Care Jewel Diameter Gauger Name Role Phone Naveed Mueller Primary Care Provider ALLERGIES Allergen (clinical drug ingredient) Drug/Non Drug Allergy documented on EMR Reaction Allergy Type Onset Date Status Penicillin G Benzathine ? Drug Allergy Active erythromycin Erythromycin Rash Drug Allergy A ctive Azithromycin Rash Drug Allergy Acti ve REASON FOR VISIT Post ER visit seizure c/o blurred vision since the seizure and forgetfulness, Accompanied by mom MEDICATIONS Medication SIG (Take, Route, Frequency, Duration) [...] 250-50 MCG/DOSE as directed Inhalation Not-T aking VITAL SIGNS BMI 27.69 kg/m2 06/28/2024 Blood pressure systolic 116 mm Hg 06/28/20 24 Blood pressure diastolic 80 mm Hg 024 Height 70 in 06/28/2024 Weight 193 lbs 06/28/2024 Encounters Encounter Location Date Provider Diagnosis Naveed Mueller MD [address] [place] [id number] 06/28/2024 Naveed Mueller Seizure R56.9 and Active substance abuse F19.10 ASSESSMENTS Encounter Date Diagnosis Assessment Notes Treatment Notes Treatment Clinical Notes 06/28/2024 Seizure (ICD-10 - R56.9) is secondary to overuse of cocaine and not a seizure disorder. is going to go to neurology and is going to get into drug treatment. going to see towel stretcher at [facility] 06/28/2024 Active substance abuse (ICD-10 - F19.10) PLAN OF TREATMENT Treatment Notes Assessment Notes Seizure is secondary to over use of cocaine and not a seizure disorder. is going to go to neurology and is going to get into drug treatment. going to see towel stretcher at [facility] Next Appt Details Follow Up: 3 Weeks, Reason: Provider Name:Naveed dobson, 07/22/2024 11:45:00 AM, [address] [place] [address], [address], [place], [phone], Provider Name:Naveed dobson, 08/25/2024 10:00:00 AM, [address] [place] [address], [address], [place], [place], [phone], Progress Notes * Examination Category Sub-Category Detail Notes General Examination GENERAL APPEARANCE: alert, w ell hydrated, in no distress , male HEAD: normocephalic HEART: no murmurs, rubs, ga llops , regular rate and rhythm LUNGS: no wheezes, rales, r honchi , good air movement , clear to auscultation bilaterally SKIN: good turgor
--- OUTSIDE RECORDS SUMMARY | 2024-06-29 11:52 | XMS_ITS ---
Author Organization Naveed Mueller MD Address [address] [place] [phone] Care Team Providers Care [employer]ating [employer]or Name Role Phone Naveed Mueller Primary Care Provider REASON FOR VISIT ER visit rec'd Encounters Encounter Location Date Provider Diagnosis Naveed Mueller MD [address] [place] [address] [address] [place], [place] [phone] 06/27/2024 Naveed Mueller PLAN OF TREATMENT Next Appt Details Provider Name:Naveed dobson, 07/22/2024 11:45:00 AM, [address] [place] [address], [address] [facility], [place], [place], [phone], Provider Name:Naveed dobson, 08/25/2024 10:00:00 AM, [address] [place] [address], [place] [address], [place], [place], [phone],
== END 2024-06-25 21:00 | disposition home or self-care (01) ==
PROVIDERS: Nurse Practitioner Family; Physician Assistant; Emergency Provider Emergency Medicine; PCP Internal Medicine
DX: R56.9 Unspecified convulsions (principal); F14.10 Cocaine abuse, uncomplicated; R00.0 Tachycardia, unspecified; Z79.899 Other long term (current) drug therapy
CPT/HCPCS: 36415; 70450; 80048; 80076; 80307; 81001; 82550; 83605; 83735; 84100; 84484; 85025; 93005; 96361; 96374; 99284; 99285; J2060

== ENCOUNTER → 2024-06-25 16:51 | Outpatient (BNV) | payer OTHER, SELFPAY | PROVIDERS: Emergency Provider Emergency Medicine; PCP Internal Medicine; Visit Provider Internal Medicine Cardiovascular Disease | DX: R00.0 Tachycardia, unspecified (principal) | CPT/HCPCS: 93010 ==

== ENCOUNTER 2024-10-10 10:13 | Emergency (ER) | payer OTHER, SELFPAY ==
--- NOTE | 2024-10-10 11:18 | ED.GENADULT ---
HPI - General Adult General Chief complaint: General Medical Stated complaint: cyst on back Related Data Home Medications ?Medication ?Instructions ?Recorded ?Confirmed albuterol sulfate 90 mcg/actuation 1 inh inhalation Q4H PRN Wheezing 05/29/20 08/13/23 aerosol inhaler Allergies Allergy/AdvReac Type Severity Reaction Status Date / Time Penicillins Allergy Severe anaphylaxis Verified 10/10/24 11:21 in mother - Pt did not react PMFSH Past Medical History Medical History Occasional cigarette smoker COVID-19 vaccine administered GERD (gastroesophageal reflux disease) Asthma Surgical History History of excision of pilonidal cyst (11/12/22) Hx of wisdom tooth extraction Pilonidal cyst Family History Family History Father Heart attack Mother No problems noted. Social History Social History Are you a primary emergency care tech to a significant other at home: No Do you presently have visiting nurse or other home services: No Alcohol intake: current Alcohol intake frequency: a few times a week Alcohol type: beer Patient Tobacco Use Status: Current everyday Tobacco user Tobacco use type: Cigarette Cigarettes Per Day: 10 Substance Use Type: Crack/Cocaine Advance Directives: No Do you have a plan to hurt others: No Plan Physical Exam ED Vital Signs: Vital Signs - 24 hr 10/10/24 19:19 Temperature 97.9 F Pulse Rate 87 Respiratory Rate 18 Blood Pressure 143/104 H Pulse Oximetry 96 Oxygen Delivery Method Room Air BMI result Body Mass Index 28.9 Course Course Course Narrative: This is a rapid medical exam performed by Caridad Kapoor PA-C. The patient is a 29-year-old male who presents with recurrent pilonidal cyst. No fevers. No indication for labs or imaging. The patient is stable and can return to the waiting room pending his full medical assessment. Discharge Plan Discharge Clinical Impression: Pilonidal cyst Patient Disposition: Left W/O Completing Treatment Prescriptions: No Action albuterol sulfate 90 mcg/actuation HFA aerosol inhaler 1 inh inhalation Q4H PRN (Reason: Wheezing) Discharge Date/Time: 10/10/24 20:50
[2024-10-10 11:19] VITALS: BP 108/90; PULSE 97; RESP 16; TEMP 37.3; O2SAT 97; BMI 28.9
[2024-10-10 19:19] VITALS: BP 143/104; PULSE 87; RESP 18; TEMP 36.6; O2SAT 96
== END 2024-10-10 20:50 | disposition left against medical advice (07) ==
LOC: HO.ED 20:51
PROVIDERS: Emergency Provider Emergency Medicine; PCP Internal Medicine
DX: L05.91 Pilonidal cyst without abscess (principal); F17.210 Nicotine dependence, cigarettes, uncomplicated
CPT/HCPCS: 99281; 99283